=== PATIENT | female | born 1985 | race Caucasian/White ===

== ENCOUNTER 2018-05-07 14:21 | Observation (INO) ==
[2018-05-07] MEDS ORDERED: NS 100 ML IV 100 ML IV ONE (14:42)
--- NOTE | 2018-05-07 15:26 | CT ---
CT ABDOMEN AND PELVIS WITH ORAL AND IV CONTRAST CLINICAL HISTORY: 33-year-old female with right lower quadrant pain and fever for 3 weeks. COMPARISON: None. TECHNIQUE: Multiple contiguous axial images were obtained following the administration of 99 mL Omnip aque 350 intravenously and oral contrast. Images were reformatted in the coronal and sagittal planes . FINDINGS: The lung bases are clear without pulmonary nodules, masses, or pleural fluid collections. The inferi or imaged heart is normal in size and there is no pericardial effusion. The liver, gallbladder, pancreas, and spleen are within normal limits. The adrenal glands are normal bilaterally. The kidneys perfuse in a normal fashion and the ureters r un in an unobstructed course to a well distended urinary bladder. The uterus is anteverted and normal in size. Mildly complex right adnexal cyst measures 3.9 x 3.8 x 4.1 cm with small volume free fluid within the pouch of Anjel. Left adnexa is unremarkable. The bowel is without obstruction or inflammation and there is no free fluid or free air within the pe ritoneal cavity. Appendix not visualized, no pericecal inflammation. There are no pathologically enl arged lymph nodes in the abdomen or pelvis. The arteriovascular structures are within normal limits. Soft tissues are normal. The osseous structures are intact without fracture or malalignment. IMPRESSION: 1. No acute intra-abdominal or pelvic pathology. 2. Right adnexal cyst measuring up to 4.1 cm, most likely benign, with small volume free fluid within the pouch of Anjel which is likely physiologic. However, ruptured or leaking ovarian cysts can be a source of pain, correlate with pelvic exam. 3. Nonvisualized appendix without pericecal inflammation to suggest appendicitis. Reported By:
[2018-05-07] MEDS ORDERED: TYLENOL 325 MG TAB PO PRN (17:24)
[2018-05-07] MEDS ORDERED: TORADOL 30 MG VIAL IVP PRN (17:24)
[2018-05-07 18:08] LABS: BASOPHILS % (AUTO) 0.2 % (0.2-1.0); EOSINOPHILS % (AUTO) 0.9 % (0.9-2.9); HEMATOCRIT 31.9 % (36.0-47.0); HEMOGLOBIN 10.8 g/dL (12.0-16.0); LYMPHOCYTES # (AUTO) 1.1 X10^3/uL (1.3-2.9); LYMPHOCYTES % (AUTO) 28.4 % (21.0-51.0); MEAN CORPUSCULAR HEMOGLOBIN 26.3 pg (27.0-34.0); MEAN CORPUSCULAR HGB CONC 33.8 g/dL (33.0-35.0); MEAN CORPUSCULAR VOLUME 77.8 fL (80.0-100.0); MEAN PLATELET VOLUME 7.3 fL (7.4-11.0); MONOCYTES # (AUTO) 0.4 x10^3/uL (0.3-0.8); MONOCYTES % (AUTO) 11.1 % (0.0-13.0); NEUTROPHILS # (AUTO) 2.2 x10^3/uL (2.2-4.8); NEUTROPHILS % (AUTO) 59.4 % (42.0-75.0); PLATELET COUNT 226 X10^3/uL (150.0-450.0); RED CELL DISTRIBUTION WIDTH 14.8 % (11.6-16.5); WHITE BLOOD COUNT 3.7 X10^3/uL (3.6-10.0)
[2018-05-07 18:15] VITALS: BMI 24.5
[2018-05-07 18:22] LABS: ALANINE AMINOTRANSFERASE 33 Units/L (12-78); ALBUMIN 3.2 g/dL (3.4-5.0); ALKALINE PHOSPHATASE 116 Units/L (46-116); ASPARTATE AMINO TRANSFERASE 23 Units/L (15-37); BLOOD UREA NITROGEN 11 mg/dL (7-18); CALCIUM 9.3 mg/dL (8.5-10.1); CHLORIDE 101 mmol/L (98-107); COR CA(FOR HYPOALB) 9.9 mg/dL (8.5-10.1); CREATININE 0.66 mg/dL (0.55-1.02); SODIUM 137 mmol/L (136-145); TOTAL PROTEIN 7.5 g/dL (6.4-8.2); eGFR NON BLACK RACES > 60 (>60)
[2018-05-07] MEDS: NS 1000 ML 1,000 ML IV SCH (18:35)
[2018-05-07] MEDS: LEVAQUIN PREMIX IV 750 MG 750 MG/150 ML BAG IV SCH (18:35)
[2018-05-07 19:12] LABS: BILIRUBIN,URINE NEGATIVE (NEGATIVE); BLOOD/HEMOGLOBIN,URINE NEGATIVE (NEGATIVE); GLUCOSE, URINE NEGATIVE (NEGATIVE); KETONES,URINE NEGATIVE (NEGATIVE); LEUKOCYTE ESTERASE ,URINE 1+ (NEGATIVE); NITRITES,URINE NEGATIVE (NEGATIVE); PROTEIN,URINE 2+ (NEGATIVE); UROBILINOGEN,URINE 1+ (NORMAL)
--- NOTE | 2018-05-07 19:14 | DR.UPDATE ---
H&P Update History and Physical Update: History and Physical reviewed and patient examined. Changes noted: Yes with the following: WAS SEEN IN THE OFFICE TODAY. SHE WAS SENT TO THE HOSPITAL FOR AN ABDOMEN/PELVIS CT. CT REVEALED: No acute intra-abdominal or pelvic pathology. Right adnexal cyst measuring up to 4.1 cm, most likely benign, with small volume free fluid within the pouch of Anjel which is likely physiologic. However, ruptured or leaking ovarian cysts can be a source of pain, correlate with pelvic exam. Nonvisualized appendix without pericecal inflammation to suggest appendicitis. She was admitted to the hospital for further evaluation and treatment.
[2018-05-07 19:15] LABS: APPEARANCE,URINE SLIGHTLY HAZY (CLEAR); COLOR,URINE PALE YELLOW (YELLOW)
[2018-05-07 19:23] LABS: BACTERIA,URINE NEGATIVE /HPF (NEGATIVE); RBC,URINE NONE SEEN /HPF (NONE SEEN); SQUAMOUS EPITHELIAL CELL,UR FEW /HPF (NEGATIVE)
[2018-05-07] MEDS ORDERED: COLACE CAP 100 MG PO SCH (21:00)
[2018-05-07] MEDS ORDERED: MILK OF MAGNESIA PO SCH (21:00)
[2018-05-07] MEDS: FORTAZ or TAZICEF VIAL INJ 1 G in NS 100 ML IV + SPIKE MINIBAG* 100 ML IV SCH (21:08)
[2018-05-07] MEDS ORDERED: ZOFRAN INJ 4 MG VIAL IVP PRN (21:14)
[2018-05-08] MEDS: NS 1000 ML 1,000 ML IV SCH ×3 (03:02→12:12)
[2018-05-08] MEDS: FORTAZ or TAZICEF VIAL INJ 1 G in NS 100 ML IV + SPIKE MINIBAG* 100 ML IV SCH ×3 (05:43→21:37)
[2018-05-08 05:51] LABS: BASOPHILS % (AUTO) 0.5 % (0.2-1.0); EOSINOPHILS # (AUTO) 0.1 x10^3/uL (0.0-0.2); EOSINOPHILS % (AUTO) 1.6 % (0.9-2.9); HEMATOCRIT 27.6 % (36.0-47.0); HEMOGLOBIN 9.6 g/dL (12.0-16.0); LYMPHOCYTES # (AUTO) 1.2 X10^3/uL (1.3-2.9); LYMPHOCYTES % (AUTO) 36.7 % (21.0-51.0); MEAN CORPUSCULAR HEMOGLOBIN 26.9 pg (27.0-34.0); MEAN CORPUSCULAR HGB CONC 34.7 g/dL (33.0-35.0); MEAN CORPUSCULAR VOLUME 77.5 fL (80.0-100.0); MEAN PLATELET VOLUME 7.6 fL (7.4-11.0); MONOCYTES # (AUTO) 0.5 x10^3/uL (0.3-0.8); MONOCYTES % (AUTO) 16.9 % (0.0-13.0); NEUTROPHILS # (AUTO) 1.4 x10^3/uL (2.2-4.8); NEUTROPHILS % (AUTO) 44.3 % (42.0-75.0); PLATELET COUNT 194 X10^3/uL (150.0-450.0); RED BLOOD COUNT 3.56 X10^6/uL (3.5-5.4); RED CELL DISTRIBUTION WIDTH 14.9 % (11.6-16.5); WHITE BLOOD COUNT 3.1 X10^3/uL (3.6-10.0)
[2018-05-08 06:12] LABS: ALANINE AMINOTRANSFERASE 26 Units/L (12-78); ALBUMIN 2.5 g/dL (3.4-5.0); ALKALINE PHOSPHATASE 91 Units/L (46-116); ASPARTATE AMINO TRANSFERASE 20 Units/L (15-37); BLOOD UREA NITROGEN 10 mg/dL (7-18); CALCIUM 8.4 mg/dL (8.5-10.1); CARBON DIOXIDE 27.9 mmol/L (21-32); CHLORIDE 107 mmol/L (98-107); COR CA(FOR HYPOALB) 9.6 mg/dL (8.5-10.1); CREATININE 0.61 mg/dL (0.55-1.02); SODIUM 141 mmol/L (136-145); eGFR NON BLACK RACES > 60 (>60)
[2018-05-08] MEDS: COLACE CAP 100 MG PO SCH (10:14)
[2018-05-08] MEDS: LEVAQUIN PREMIX IV 750 MG 750 MG/150 ML BAG IV SCH (10:14)
[2018-05-08] MEDS: MIRALAX POWDER (1 DOSE 17 G) PO SCH (10:14)
[2018-05-08] MEDS: MILK OF MAGNESIA PO SCH ×4 (10:14→21:37)
[2018-05-08] MEDS: TORADOL 30 MG VIAL IVP SCH ×3 (10:15→18:09)
[2018-05-08] MEDS ORDERED: NS 1000 ML IV SCH (15:00)
[2018-05-08] MEDS ORDERED: NS 1000 ML 1,000 ML IV SCH (15:00)
[2018-05-08] MEDS ORDERED: MILK OF MAGNESIA PO PRN (21:56)
[2018-05-09] MEDS: TORADOL 30 MG VIAL IVP SCH (01:48)
[2018-05-09 04:30] LABS: BASOPHILS % (AUTO) 0.2 % (0.2-1.0); EOSINOPHILS # (AUTO) 0.1 x10^3/uL (0.0-0.2); EOSINOPHILS % (AUTO) 2.2 % (0.9-2.9); HEMATOCRIT 26.3 % (36.0-47.0); HEMOGLOBIN 9.2 g/dL (12.0-16.0); LYMPHOCYTES % (AUTO) 35.7 % (21.0-51.0); MEAN CORPUSCULAR HEMOGLOBIN 27.2 pg (27.0-34.0); MEAN CORPUSCULAR HGB CONC 34.9 g/dL (33.0-35.0); MEAN CORPUSCULAR VOLUME 77.9 fL (80.0-100.0); MEAN PLATELET VOLUME 7.4 fL (7.4-11.0); MONOCYTES # (AUTO) 0.4 x10^3/uL (0.3-0.8); MONOCYTES % (AUTO) 13.1 % (0.0-13.0); NEUTROPHILS # (AUTO) 1.4 x10^3/uL (2.2-4.8); NEUTROPHILS % (AUTO) 48.8 % (42.0-75.0); PLATELET COUNT 177 X10^3/uL (150.0-450.0); RED BLOOD COUNT 3.37 X10^6/uL (3.5-5.4); RED CELL DISTRIBUTION WIDTH 14.7 % (11.6-16.5); WHITE BLOOD COUNT 2.9 X10^3/uL (3.6-10.0)
[2018-05-09 04:36] LABS: ALANINE AMINOTRANSFERASE 24 Units/L (12-78); ALBUMIN 2.4 g/dL (3.4-5.0); ALKALINE PHOSPHATASE 80 Units/L (46-116); ASPARTATE AMINO TRANSFERASE 19 Units/L (15-37); BLOOD UREA NITROGEN 10 mg/dL (7-18); CALCIUM 8.1 mg/dL (8.5-10.1); CARBON DIOXIDE 26.9 mmol/L (21-32); CHLORIDE 108 mmol/L (98-107); COR CA(FOR HYPOALB) 9.4 mg/dL (8.5-10.1); CREATININE 0.67 mg/dL (0.55-1.02); SODIUM 143 mmol/L (136-145); TOTAL PROTEIN 5.7 g/dL (6.4-8.2); eGFR NON BLACK RACES > 60 (>60)
[2018-05-09] MEDS: FORTAZ or TAZICEF VIAL INJ 1 G in NS 100 ML IV + SPIKE MINIBAG* 100 ML IV SCH (05:55)
[2018-05-09 09:43] VITALS: BP 102/62
[2018-05-09] MEDS: MIRALAX POWDER (1 DOSE 17 G) PO SCH (09:43)
[2018-05-09] MEDS: COLACE CAP 100 MG PO SCH (09:43)
[2018-05-09] MEDS: LEVAQUIN PREMIX IV 750 MG 750 MG/150 ML BAG IV SCH (09:43)
--- NOTE | 2018-05-13 21:56 | PCM.PROG ---
Progress Note - Progress Note for Day of Date of Exam: 05/08/18 - Subjective Subjective: WAS ADMITTED FOR FEVER AND ABDOMINAL PAIN. ABDOMEN/ PELVIS CT REVEALED AN OVARIAN CYST. TODAY, SHE IS ALERT AND ORIENTED, LYING IN BED ON MORNING ROUNDS. SHE CONTINUES WITH COMPLAINTS OF ABDOMINAL PAIN. ON EXAMINATION, HEART IS REGULAR IN RATE AND RHYTHM. BILATERAL LUNGS ARE CLEAR TO AUSCULTATION. ABDOMEN IS ROUND, SOFT, AND NOTED WITH MILD, DIFFUSE TENDERNESS TO PALPATION. DECREASED BOWEL SOUNDS NOTED IN ALL QUADRANTS. SHE IS HEMODYNAMICALLY STABLE TODAY AND HAS BEEN AFEBRILE SINCE ADMISSION. SHE DENIES A BOWEL MOVEMENT IN THE PAST FOUR DAYS. TODAY, WE WILL START A BOWEL REGIMEN AND SCHEDULE IV TORADOL. OTHERWISE, WE WILL FOLLOW UP WITH AM LABS AND CONTINUE TO MONITOR PATIENT. - Past Medical Family Social History Past Med/Fam/Surg Hx: No changes since H&P Allergies: Allergies morphine Allergy (Verified 05/07/18 17:40) - Review of Systems ROS: No change since H&P - Vital Signs and I&O's Vital Signs: Temperature 98.5 F Pulse Rate [Left Brachial] 78 Respiratory Rate 18 Blood Pressure [Left Arm] 102/62 O2 Sat by Pulse Oximetry 99 - Physical Exam Oriented: Normal Eyes: Normal Ear: Normal Nose: Normal Throat: Normal Respiratory: Normal Cardiovascular: Normal : Normal Auscultation: Bowel Sounds: Decreased Palpation: Normal Tenderness: Diffuse, Mild. negative: Rebound, Guarding, Rigidity Skin: Normal Musculoskeletal: Normal Psychiatric: Normal Mood Description: Calm Affect: Normal Speech Pattern: Clear, Appropriate - Laboratory and Diagnostics Result Diagrams: 05/09/18 04:08 05/09/18 04:08 Labs: 05/07/18 17:57 Blood Blood Culture - Final 05/07/18 17:51 Blood Blood Culture - Final Laboratory WBC 2.9 X10^3/uL (3.6-10.0) L 05/09/18 04:08 RBC 3.37 X10^6/uL (3.5-5.4) L 05/09/18 04:08 Hgb 9.2 g/dL (12.0-16.0) L 05/09/18 04:08 Hct 26.3 % (36.0-47.0) L 05/09/18 04:08 MCV 77.9 fL (80.0-100.0) L 05/09/18 04:08 MCH 27.2 pg (27.0-34.0) 05/09/18 04:08 MCHC 34.9 g/dL (33.0-35.0) 05/09/18 04:08 RDW 14.7 % (11.6-16.5) 05/09/18 04:08 Plt Count 177 X10^3/uL (150.0-450.0) 05/09/18 04:08 MPV 7.4 fL (7.4-11.0) 05/09/18 04:08 Neut % (Auto) 48.8 % (42.0-75.0) 05/09/18 04:08 Lymph % (Auto) 35.7 % (21.0-51.0) 05/09/18 04:08 [place] % (Auto) 13.1 % (0.0-13.0) H 05/09/18 04:08 Eos % (Auto) 2.2 % (0.9-2.9) 05/09/18 04:08 Baso % (Auto) 0.2 % (0.2-1.0) 05/09/18 04:08 Neut # (Auto) 1.4 x10^3/uL (2.2-4.8) L 05/09/18 04:08 Lymph # (Auto) 1.0 X10^3/uL (1.3-2.9) L 05/09/18 04:08 [place] # (Auto) 0.4 x10^3/uL (0.3-0.8) 05/09/18 04:08 Eos # (Auto) 0.1 x10^3/uL (0.0-0.2) 05/09/18 04:08 Baso # (Auto) 0.0 X10^3/uL (0.0-0.1) 05/09/18 04:08 Absolute Nucleated RBC 0.0 /100WBC 05/09/18 04:08 Sodium 143 mmol/L (136-145) 05/09/18 04:08 Corrected Sodium TNP 05/09/18 04:08 Potassium 3.5 mmol/L (3.5-5.1) 05/09/18 04:08 Chloride 108 mmol/L (98-107) H 05/09/18 04:08 Carbon Dioxide 26.9 mmol/L (21-32) 05/09/18 04:08 BUN 10 mg/dL (7-18) 05/09/18 04:08 Creatinine 0.67 mg/dL (0.55-1.02) 05/09/18 04:08 Est GFR (MDRD) Af Amer > 60 (>60) 05/09/18 04:08 Est GFR (MDRD) Non-Af > 60 (>60) 05/09/18 04:08 Glucose 109 mg/dL (65-99) H 05/09/18 04:08 Calcium 8.1 mg/dL (8.5-10.1) L 05/09/18 04:08 Corrected Calcium 9.4 mg/dL (8.5-10.1) 05/09/18 04:08 Total Bilirubin 0.40 mg/dL (0.2-1.0) 05/09/18 04:08 AST 19 Units/L (15-37) 05/09/18 04:08 ALT 24 Units/L (12-78) 05/09/18 04:08 Alkaline Phosphatase 80 Units/L (46-116) 05/09/18 04:08 Total Protein 5.7 g/dL (6.4-8.2) L 05/09/18 04:08 Albumin 2.4 g/dL (3.4-5.0) L 05/09/18 04:08 Globulin 3.3 g/dL (2.5-4.5) 05/09/18 04:08 Albumin/Globulin Ratio 0.7 Ratio (1.1-2.1) L 05/09/18 04:08 Specimen Type Clean catch urine 05/07/18 19:03 Urine Color Pale yellow (YELLOW) 05/07/18 19:03 Urine Appearance Slightly hazy (CLEAR) 05/07/18 19:03 Urine pH 7.0 (5.0 - 8.0) 05/07/18 19:03 Ur Specific [place] 1.005 (1.000-1.030) 05/07/18 19:03 Urine Protein 2+ (NEGATIVE) 05/07/18 19:03 Urine Glucose (UA) Negative (NEGATIVE) 05/07/18 19:03 Urine Ketones Negative (NEGATIVE) 05/07/18 19:03 Urine Occult Blood Negative (NEGATIVE) 05/07/18 19:03 Urine Nitrite Negative (NEGATIVE) 05/07/18 19:03 Urine Bilirubin Negative (NEGATIVE) 05/07/18 19:03 Urine Urobilinogen 1+ (NORMAL) 05/07/18 19:03 Ur Leukocyte Esterase 1+ (NEGATIVE) 05/07/18 19:03 Urine RBC None seen /HPF (NONE SEEN) 05/07/18 19:03 Urine WBC 0-2 /HPF (NONE SEEN) 05/07/18 19:03 Ur Squamous Epith Cells Few /HPF (NEGATIVE) 05/07/18 19:03 Urine Bacteria Negative /HPF (NEGATIVE) 05/07/18 19:03 Ur Culture Indicated? No/not indicated 05/07/18 19:03 - Plan (1) Fever Status: Acute Qualifiers: Fever type: unspecified Qualified Code(s): R50.9 - Fever, unspecified (2) Abdominal pain Status: Acute Qualifiers: Abdominal location: generalized Qualified Code(s): R10.84 - Generalized abdominal pain Plan: CONTINUE TO MONITOR PAIN (3) Ovarian cyst Status: Acute Qualifiers: Laterality: right Qualified Code(s): N83.201 - Unspecified ovarian cyst, right side (4) Constipation Status: Acute Qualifiers: Constipation type: unspecified constipation type Qualified Code(s): K59.00 - Constipation, unspecified Plan: COLACE, MILK OF MAGNESIA, MIRALAX, CONTINUE TO MONITOR
--- NOTE | 2018-05-29 17:15 | DR.CARTERD ---
- Discharge Summary for: Discharge Summary for Date of:: 05/09/18 - Admission Date Date of Admission: 05/07/18 - Admission Diagnoses Admission Diagnosis: (1) Abdominal pain (2) Fever (3) Ovarian cyst (4) Constipation - Discharge Date Discharge Date: 05/09/18 - Discharge Diagnoses Discharge Diagnosis: (1) Abdominal pain (2) Fever (3) Ovarian cyst (4) Constipation - Hospital Course Hospital Course: Day one, Ms. Villalta presented to the hospital as a direct admission after being seen in the office with reports of fever. Patient reported symptoms started a couple of weeks ago as high as 104.5. Symptoms included abdominal pain, painful urination and nausea. Patient received a Rocephin injection and was started on oral Cipro twice daily to take for 14 days with continued symptoms. Patient was sent for an outpatient abdomen and pelvis CT which revealed right adnexal cyst measuring up to 4.1 cm, most likely benign, with small volume free fluid within the pouch of Anjel which is likely physiologic. However, ruptured or leaking ovarian cysts can be a source of pain , correlate with pelvic exam. Patient noted with right lower quadrant abdominal tenderness on palpation. Patient reported her last bowel movement was on 05/03/18. Patient started on IV fluids, IV antibiotics, and pain medications. Medical History: None. Medications: Tylenol 650mg po Q4hr PRN, Toradol 30mg IV Q6hr PRN, Levaquin 750mg IV daily, NS @125ml/hr, Colace 200mg po HS, Milk of Mag 30ml po HS, Zofran 4mg IV Q4hr PRN, Fortaz 1gm IV Q8hr, NS @ 125ml/hr [id number]. Abnormal Labs: Hgb 10.8, Hct 31.9, MCV 77.8, MCH 26.3, MPV 7.3, Potassium 3.4, Albumin 3.2, A/G Ratio 0.7. Urinalysis: Protein 2+, Urobilinogen 1+, Leuk Est 1+, WBC 0-2. Blood Cultures x2 obtained. Day two, Ms. Villalta continued treatment for fever and abdominal pain. She was alert and oriented. She continued with complaints of abdominal pain. On examination, heart was regular in rate and rhythm. Bilateral lungs were clear to auscultation. Abdomen was round, soft, and noted with mild, diffuse tenderness to palpation. Decreased bowel sounds noted throughout. Labs wnl. She had been afebrile since admission. She denied bowel movement in the past four days. We started a bowel regimen and Toradol IV atc. We continued to monitor. Day three, Patient reported she felt better. Patient rest in bed, pleasant affect. She remained afebrile. Labs wnl. Abdomen was noted with mild tenderness upon palpation. Patient reported pain was tolerable with oral pain medication. We planned for discharge. Instructions for medications and follow up were discussed with patient and family, both voiced understanding. Patient discharged home in stable condition with family. - Discharge Medications Discharge Medications: Home Medication List ondansetron 1 tab TRANSLINGUAL Q8H PRN 05/07/18 [History] ciprofloxacin HCl [Cipro] 500 mg PO BID #20 tab 05/09/18 [Rx] tramadol [Ultram] 50 mg PO Q4H #30 tab 05/09/18 [Rx] Prescriptions: ciprofloxacin HCl [Cipro] Marcello Dailey tramadol [Ultram] Marcello Dailey - Discharge Disposition Discharge Disposition: Patient is to follow up in our office in one week.
== END 2018-05-09 10:03 | disposition home or self-care (01) ==
LOC: RAD 14:21 → MED/SURG 14:21
PROVIDERS: ADMIT Internal Medicine; ATTEND Internal Medicine
DX: N85.8 Other specified noninflammatory disorders of uterus; R10.9 Unspecified abdominal pain; R50.9 Fever, unspecified
CPT/HCPCS: 36415; 74177; 80053; 81001; 85025; 87040; A4216; A4222; G0378; J0713; J1885; J7030; J7050

== ENCOUNTER 2022-08-18 15:51 | Inpatient (IN) ==
--- NOTE | 2022-08-18 16:41 | DR.GENAD ---
HPI <Wayne Martínez - Last Filed: 08/18/22 19:56> Time Seen Time Seen by Provider: 08/18/22 16:40 PCP Primary Care Physician: amelie Complaint/Symptoms Chief Complaint Doctors Comments: 37 y/o female sent by PCP for evaluation. Started feeling ill several days ago, sinus congestion. Now with a cough, productive of some yellow sputum. Today with right sided chest pain, worse with coughing, moving. Does not radiate, nothing makes it better. + fever, nausea. No vomiting, diarrhea, or urinary complaints. Daughter had URI last week. No swelling or redness of her legs. Chief Complaint:: Pt stated that she's had a head cold since monday and has a pain in the middle of her back and the front of her ribs when she coughs. Pt states it's a sharp pain every time she breathes and this is the worst is has b een. Nothing makes the pain better and nothing makes the pain more intense. Self Treatment fo Chief Complaint: Pt took two tylenol around 1300 today; Toradol shot in Amelie's office around 15 minutes ago Nurses notes reviewed Nurses Notes Review: Yes Source History Provided: Patient and Significant Other Mode of Arrival Mode of Arrival: Ambulatory Timing Onset of Chief Complaint: 08/15/22 PMH <Wayne Martínez - Last Filed: 08/18/22 19:56> PMH Past Medical History: Yes Past Medical History: Asthma Past Medical History Comment: HIV - diagnosed in 2006 Past Surgical History: Yes Surgical History: Tonsillectomy Past Surgical History Comment: Eye surgery, tubes in ears, Family History History of Family Medical Conditions: Yes Family Medical History: Diabetes Mellitus, Heart Failure and Hypertension Social History Alcohol Use: None Do you use any recreational Drugs:: No Lives With: Spouse Lives Where: Home Infectious screening Have you traveled outside the country in the last 6 months?: No Isolation: Standard ROS <Wayne Martínez - Last Filed: 08/18/22 19:56> Review of Systems Constitutional: Chills, Fever and Weakness Eyes: No Symptoms Reported ENTM: No Symptoms Reported Respiratoy: Productive Cough and Short of Breath Cardiovascular: Chest Pain Gastrointestinal/Abdominal: No Symptoms Reported Genitourinary: No Symptoms Reported Neurological: No Symptoms Reported Musculoskeletal: No Symptoms Reported Integumentary: No Symptoms Reported Hematologic/Lymphatic: No Symptoms Reported Psychiatric: No Symptoms Reported All Other Systems: Reviewed and Negative PE <Wayne Martínez - Last Filed: 08/18/22 19:56> Vital Signs Vitals: Temperature 97.5 F Pulse Rate [Apical] 117 Pulse Rate 101 Respiratory Rate 22 Blood Pressure [Left Arm] 97/53 Blood Pressure 91/57 O2 Sat by Pulse Oximetry 98 General General Appearance: Alert and In No Apparent Distress Eyes Eye exam: PERRL and EOMI ENT ENT Exam: Normal Exam, Normal Oropharynx and Mucous Membranes Moist Neck Neck Exam: Normal Inspection and Full ROM Chest Chest Inspection: Tenderness (right anterior tenderness.) Respiratory Respiratory Exam: Normal Lung Sounds Bilat; negative Accessory Muscle Use or Respiratory Distress Cardiovascular Cardiovascular Exam: Regular Rate, Normal Rhythm, Tachycardia and Normal Heart Sounds Extremities Extremities Exam: Normal Inspection and Full ROM; negative Tenderness or Edema Neurologic Neurological Exam: Alert, Oriented X3 and CN II-XII Intact; negative Motor Sensory Deficit Skin Skin Exam: Warm and Dry <Becki Mathews - Last Filed: 08/18/22 22:28> Vital Signs Vitals: Temperature 97.5 F Pulse Rate [Apical] 117 Pulse Rate 101 Respiratory Rate 22 Blood Pressure [Left Arm] 97/53 Blood Pressure 91/57 O2 Sat by Pulse Oximetry 98 MDM <Wayne Martínez - Last Filed: 08/18/22 19:56> Differential Diagnosis Differential Diagnosis: pneumonia, pleurisy, PE, PTX COURSE <Wayne Martínez - Last Filed: 08/18/22 19:56> Treatment Treatment: 37 y/o female ill x past few days, having rught sided chest pain. Sent from PCP's office. W/u iniitated. 1800 - CXR with RLL consolidation, probable infiltrate. WBC 12k, CMP with slight low Na 133, K+ 3.2. d-dimer elevated at 0.96. Probable pneumonia, given IV rocephin/toradol. Will obtain CTA of the chest to r/o underlying PE with infarct. <Becki Mathews - Last Filed: 08/18/22 22:28> Treatment Treatment: 37 y/o female ill x past few days, having rught sided chest pain. Sent from PCP's office. W/u iniitated. 1800 - CXR with RLL consolidation, probable infiltrate. WBC 12k, CMP with slight low Na 133, K+ 3.2. d-dimer elevated at 0.96. Probable pneumonia, given IV rocephin/toradol. Will obtain CTA of the chest to r/o underlying PE with infarct. [address] Martínez; pt resting quietly Reevaluation 1st: Worsened (several episodes of desats to 84% when coughing/moving around; placed on oxygen) Consultation Call Returned: 22:00 (Dr Daniel accepts admission.) ROR <Wayne Martínez - Last Filed: 08/18/22 19:56> Labs Reviewed Result Diagrams: 08/18/22 16:55 08/18/22 16:55 Laboratory: WBC 12.8 X10^3/uL (3.6-10.0) H 08/18/22 16:55 RBC 4.03 X10^6/uL (3.5-5.4) 08/18/22 16:55 Hgb 10.6 g/dL (12.0-16.0) L 08/18/22 16:55 Hct 31.2 % (36.0-47.0) L 08/18/22 16:55 MCV 77.5 fL (80.0-100.0) L 08/18/22 16:55 MCH 26.3 pg (27.0-34.0) L 08/18/22 16:55 MCHC 33.9 g/dL (33.0-35.0) 08/18/22 16:55 RDW 14.8 % (11.6-16.5) 08/18/22 16:55 Plt Count 219 X10^3/uL (150.0-450.0) 08/18/22 16:55 MPV 7.7 fL (7.4-11.0) 08/18/22 16:55 Neut % (Auto) 90.0 % (42.0-75.0) H 08/18/22 16:55 Lymph % (Auto) 3.4 % (21.0-51.0) L 08/18/22 16:55 [place] % (Auto) 6.1 % (0.0-13.0) 08/18/22 16:55 Eos % (Auto) 0.1 % (0.9-2.9) L 08/18/22 16:55 Baso % (Auto) 0.4 % (0.2-1.0) 08/18/22 16:55 Neut # (Auto) 11.5 x10^3/uL (2.2-4.8) H 08/18/22 16:55 Lymph # (Auto) 0.4 X10^3/uL (1.3-2.9) L 08/18/22 16:55 [place] # (Auto) 0.8 x10^3/uL (0.3-0.8) 08/18/22 16:55 Eos # (Auto) 0.0 x10^3/uL (0.0-0.2) 08/18/22 16:55 Baso # (Auto) 0.1 X10^3/uL (0.0-0.1) 08/18/22 16:55 Absolute Nucleated RBC 0.0 /100WBC 08/18/22 16:55 D-Dimer 0.96 ug/ml (0.0-0.57) H 08/18/22 16:55 Sodium 133 mmol/L (136-145) L 08/18/22 16:55 Corrected Sodium 133 mmol/L (136-145) L 08/18/22 16:55 Potassium 3.2 mmol/L (3.5-5.1) L 08/18/22 16:55 Chloride 98 mmol/L (98-107) 08/18/22 16:55 Carbon Dioxide 27.7 mmol/L (21-32) 08/18/22 16:55 BUN 17 mg/dL (7-18) 08/18/22 16:55 Creatinine 0.83 mg/dL (0.55-1.02) 08/18/22 16:55 Est GFR (MDRD) Af Amer > 60 (>60) 08/18/22 16:55 Est GFR (MDRD) Non-Af > 60 (>60) 08/18/22 16:55 Glucose 114 mg/dL (65-99) H 08/18/22 16:55 Lactic Acid 1.0 mmol/L (0.4-2.0) 08/18/22 16:55 Calcium 8.0 mg/dL (8.5-10.1) L 08/18/22 16:55 Corrected Calcium 9.2 mg/dL (8.5-10.1) 08/18/22 16:55 Total Bilirubin 1.40 mg/dL (0.2-1.0) H 08/18/22 16:55 AST 37 Units/L (15-37) 08/18/22 16:55 ALT 60 Units/L (12-78) 08/18/22 16:55 Alkaline Phosphatase 251 Units/L (46-116) H 08/18/22 16:55 Total Protein 7.0 g/dL (6.4-8.2) 08/18/22 16:55 Albumin 2.5 g/dL (3.4-5.0) L 08/18/22 16:55 Globulin 4.5 g/dL (2.5-4.5) 08/18/22 16:55 Albumin/Globulin Ratio 0.6 Ratio (1.1-2.1) L 08/18/22 16:55 Specimen Type Clean catch urine 08/18/22 17: Urine Color Yellow (YELLOW) 08/18/22 17:22 Urine Appearance Slightly hazy (CLEAR) 08/18/22 17: Urine pH 6.0 (5.0 - 8.0) 08/18/22 17:22 Ur Specific [place] 1.010 (1.000-1.030) 08/18/22 17: Urine Protein 1+ (NEGATIVE) 08/18/22 17: Urine Glucose (UA) Negative (NEGATIVE) 08/18/22 17: Urine Ketones Negative (NEGATIVE) 08/18/22 17:22 Urine Blood Negative (NEGATIVE) 08/18/22 17: Urine Nitrite Negative (NEGATIVE) 08/18/22 17: Urine Bilirubin Negative (NEGATIVE) 08/18/22 17:22 Urine Urobilinogen 1+ (NORMAL) 08/18/22 17:22 Ur Leukocyte Esterase Negative (NEGATIVE) 08/18/22 17: Urine RBC 0-2 /HPF (0-3) 08/18/22 17: Urine WBC None seen /HPF (0-5) 08/18/22 17:22 Ur Squamous Epith Cells Few /HPF (NEGATIVE) 08/18/22 17:22 Ur Renal Epithelial Cell Rare /HPF (NEGATIVE) 08/18/22 17:22 Amorphous Sediment 1+ /HPF (NEGATIVE) 08/18/22 17:22 Urine Bacteria Trace /HPF (NEGATIVE) 08/18/22 17:22 Hyaline Casts Rare /LPF (NEGATIVE) 08/18/22 17:22 Ur Culture Indicated? No/not indicated 08/18/22 17:22 SARS-CoV-2 (PCR) Negative (NEGATIVE) 08/18/22 17:22 Influenza Type A (PCR) Negative (NEGATIVE) 08/18/22 17:22 Influenza Type B (PCR) Negative (NEGATIVE) 08/18/22 17:22 RSV (PCR) Negative (NEGATIVE) 08/18/22 17:22 <Becki Mathews - Last Filed: 08/18/22 22:28> Labs Reviewed Laboratory: WBC 12.8 X10^3/uL (3.6-10.0) H 08/18/22 16:55 RBC 4.03 X10^6/uL (3.5-5.4) 08/18/22 16:55 Hgb 10.6 g/dL (12.0-16.0) L 08/18/22 16:55 Hct 31.2 % (36.0-47.0) L 08/18/22 16:55 MCV 77.5 fL (80.0-100.0) L 08/18/22 16:55 MCH 26.3 pg (27.0-34.0) L 08/18/22 16:55 MCHC 33.9 g/dL (33.0-35.0) 08/18/22 16:55 RDW 14.8 % (11.6-16.5) 08/18/22 16:55 Plt Count 219 X10^3/uL (150.0-450.0) 08/18/22 16:55 MPV 7.7 fL (7.4-11.0) 08/18/22 16:55 Neut % (Auto) 90.0 % (42.0-75.0) H 08/18/22 16:55 Lymph % (Auto) 3.4 % (21.0-51.0) L 08/18/22 16:55 [place] % (Auto) 6.1 % (0.0-13.0) 08/18/22 16:55 Eos % (Auto) 0.1 % (0.9-2.9) L 08/18/22 16:55 Baso % (Auto) 0.4 % (0.2-1.0) 08/18/22 16:55 Neut # (Auto) 11.5 x10^3/uL (2.2-4.8) H 08/18/22 16:55 Lymph # (Auto) 0.4 X10^3/uL (1.3-2.9) L 08/18/22 16:55 [place] # (Auto) 0.8 x10^3/uL (0.3-0.8) 08/18/22 16:55 Eos # (Auto) 0.0 x10^3/uL (0.0-0.2) 08/18/22 16:55 Baso # (Auto) 0.1 X10^3/uL (0.0-0.1) 08/18/22 16:55 Absolute Nucleated RBC 0.0 /100WBC 08/18/22 16:55 D-Dimer 0.96 ug/ml (0.0-0.57) H 08/18/22 16:55 Sodium 133 mmol/L (136-145) L 08/18/22 16:55 Corrected Sodium 133 mmol/L (136-145) L 08/18/22 16:55 Potassium 3.2 mmol/L (3.5-5.1) L 08/18/22 16:55 Chloride 98 mmol/L (98-107) 08/18/22 16:55 Carbon Dioxide 27.7 mmol/L (21-32) 08/18/22 16:55 BUN 17 mg/dL (7-18) 08/18/22 16:55 Creatinine 0.83 mg/dL (0.55-1.02) 08/18/22 16:55 Est GFR (MDRD) Af Amer > 60 (>60) 08/18/22 16:55 Est GFR (MDRD) Non-Af > 60 (>60) 08/18/22 16:55 Glucose 114 mg/dL (65-99) H 08/18/22 16:55 Lactic Acid 1.0 mmol/L (0.4-2.0) 08/18/22 16:55 Calcium 8.0 mg/dL (8.5-10.1) L 08/18/22 16:55 Corrected Calcium 9.2 mg/dL (8.5-10.1) 08/18/22 16:55 Total Bilirubin 1.40 mg/dL (0.2-1.0) H 08/18/22 16:55 AST 37 Units/L (15-37) 08/18/22 16:55 ALT 60 Units/L (12-78) 08/18/22 16:55 Alkaline Phosphatase 251 Units/L (46-116) H 08/18/22 16:55 Total Protein 7.0 g/dL (6.4-8.2) 08/18/22 16:55 Albumin 2.5 g/dL (3.4-5.0) L 08/18/22 16:55 Globulin 4.5 g/dL (2.5-4.5) 08/18/22 16:55 Albumin/Globulin Ratio 0.6 Ratio (1.1-2.1) L 08/18/22 16:55 Specimen Type Clean catch urine 08/18/22 17:22 Urine Color Yellow (YELLOW) 08/18/22 17:22 Urine Appearance Slightly hazy (CLEAR) 08/18/22 17: Urine pH 6.0 (5.0 - 8.0) 08/18/22 17:22 Ur Specific [place] 1.010 (1.000-1.030) 08/18/22 17: Urine Protein 1+ (NEGATIVE) 08/18/22 17: Urine Glucose (UA) Negative (NEGATIVE) 08/18/22 17: Urine Ketones Negative (NEGATIVE) 08/18/22 17:22 Urine Blood Negative (NEGATIVE) 08/18/22 17: Urine Nitrite Negative (NEGATIVE) 08/18/22 17: Urine Bilirubin Negative (NEGATIVE) 08/18/22 17:22 Urine Urobilinogen 1+ (NORMAL) 08/18/22 17:22 Ur Leukocyte Esterase Negative (NEGATIVE) 08/18/22 17:22 Urine RBC 0-2 /HPF (0-3) 08/18/22 17: Urine WBC None seen /HPF (0-5) 08/18/22 17:22 Ur Squamous Epith Cells Few /HPF (NEGATIVE) 08/18/22 17:22 Ur Renal Epithelial Cell Rare /HPF (NEGATIVE) 08/18/22 17:22 Amorphous Sediment 1+ /HPF (NEGATIVE) 08/18/22 17:22 Urine Bacteria Trace /HPF (NEGATIVE) 08/18/22 17:22 Hyaline Casts Rare /LPF (NEGATIVE) 08/18/22 17:22 Ur Culture Indicated? No/not indicated 08/18/22 17:22 SARS-CoV-2 (PCR) Negative (NEGATIVE) 08/18/22 17:22 Influenza Type A (PCR) Negative (NEGATIVE) 08/18/22 17:22 Influenza Type B (PCR) Negative (NEGATIVE) 08/18/22 17:22 RSV (PCR) Negative (NEGATIVE) 08/18/22 17:22 XRAY XRAY Interpreted by: Radiologist X-ray Results: pcxr: 1. Cardiomegaly, pulmonary edema and moderate right effusion. ct chest pe protocol: no PE; rll pneu and small, partially loculated rt pleural effusion suspicious for empyema, dense liver suggesting hepatic steatosis Opioid <Wayne Martínez - Last Filed: 08/18/22 19:56> Opioid Risk Tool Age (Mikal box if 16-45): Yes History of Preadolescent Sexual Abuse: No Total: 1 Total Score Risk Category: Low Risk Copyright: [employer] SEN predicting aberrant behaviors <Becki Mathews - Last Filed: 08/18/22 22:28> Opioid Risk Tool Total: 1 Total Score Risk Category: Low Risk Discharge Plan Diagnosis Discharge Problem: RLL pneumonia, Empyema lung, Hypoxia, Acute hypokalemia Discharge Plan Patient Disposition: 09 ADMITTED INPATIENT Condition: Stable
[2022-08-18] MEDS ORDERED: NS 1,000 ML IV 1,000 ML IV ONE (16:48)
[2022-08-18] MEDS ORDERED: NS 1,000 ML IV 1,000 ML ONE ×2 (16:53→22:04)
[2022-08-18 17:21] LABS: BASOPHILS # (AUTO) 0.1 X10^3/uL (0.0-0.1); BASOPHILS % (AUTO) 0.4 % (0.2-1.0); EOSINOPHILS % (AUTO) 0.1 % (0.9-2.9); HEMATOCRIT 31.2 % (36.0-47.0); HEMOGLOBIN 10.6 g/dL (12.0-16.0); LYMPHOCYTES # (AUTO) 0.4 X10^3/uL (1.3-2.9); LYMPHOCYTES % (AUTO) 3.4 % (21.0-51.0); MEAN CORPUSCULAR HEMOGLOBIN 26.3 pg (27.0-34.0); MEAN CORPUSCULAR HGB CONC 33.9 g/dL (33.0-35.0); MEAN CORPUSCULAR VOLUME 77.5 fL (80.0-100.0); MEAN PLATELET VOLUME 7.7 fL (7.4-11.0); MONOCYTES # (AUTO) 0.8 x10^3/uL (0.3-0.8); MONOCYTES % (AUTO) 6.1 % (0.0-13.0); NEUTROPHILS # (AUTO) 11.5 x10^3/uL (2.2-4.8); RED BLOOD COUNT 4.03 X10^6/uL (3.5-5.4); RED CELL DISTRIBUTION WIDTH 14.8 % (11.6-16.5); WHITE BLOOD COUNT 12.8 X10^3/uL (3.6-10.0)
[2022-08-18 17:32] LABS: ALANINE AMINOTRANSFERASE 60 Units/L (12-78); ALBUMIN 2.5 g/dL (3.4-5.0); ALKALINE PHOSPHATASE 251 Units/L (46-116); ASPARTATE AMINO TRANSFERASE 37 Units/L (15-37); BLOOD UREA NITROGEN 17 mg/dL (7-18); CARBON DIOXIDE 27.7 mmol/L (21-32); CHLORIDE 98 mmol/L (98-107); COR CA(FOR HYPOALB) 9.2 mg/dL (8.5-10.1); COR NA(FOR HYPERGLY) 133 mmol/L (136-145); CREATININE 0.83 mg/dL (0.55-1.02); SODIUM 133 mmol/L (136-145); eGFR NON BLACK RACES > 60 (>60)
[2022-08-18 17:47] LABS: BILIRUBIN,URINE NEGATIVE (NEGATIVE); BLOOD/HEMOGLOBIN,URINE NEGATIVE (NEGATIVE); GLUCOSE, URINE NEGATIVE (NEGATIVE); KETONES,URINE NEGATIVE (NEGATIVE); LEUKOCYTE ESTERASE ,URINE NEGATIVE (NEGATIVE); NITRITES,URINE NEGATIVE (NEGATIVE); PROTEIN,URINE 1+ (NEGATIVE); UROBILINOGEN,URINE 1+ (NORMAL)
[2022-08-18] MEDS ORDERED: TORADOL 30 MG VIAL IVP ONE (17:51)
[2022-08-18] MEDS ORDERED: ROCEPHIN VIAL 1 GRAM ONE (17:56)
[2022-08-18] MEDS ORDERED: NS 100 ML IV 100 ML ONE (17:56)
[2022-08-18] MEDS ORDERED: TORADOL 30 MG VIAL ONE (17:56)
[2022-08-18 18:03] LABS: APPEARANCE,URINE SLIGHTLY HAZY (CLEAR); COLOR,URINE YELLOW (YELLOW)
[2022-08-18 18:04] LABS: BACTERIA,URINE TRACE /HPF (NEGATIVE); HYALINE CASTS, URINE RARE /LPF (NEGATIVE); RBC,URINE 0-2 /HPF (0-3); SQUAMOUS EPITHELIAL CELL,UR FEW /HPF (NEGATIVE)
[2022-08-18 18:05] LABS: RENAL EPITHELIAL CELLS,URINE RARE /HPF (NEGATIVE)
[2022-08-18] MEDS: ROCEPHIN VIAL 1 GRAM 1 G in NS 100 ML IV 100 ML IV SCH (18:12)
--- NOTE | 2022-08-18 20:08 | RAD ---
CHEST, 1 VIEWHISTORY: Pt stated that she's had a head cold since monday and has a pain in the middle of her back and the front of her ribs when she coughs.Study: PA and lateral views of the chest.Comparison:August 13, 2021Findings:Cardiomegaly and what appears to be pulmonary edema.Moderate right effusion with adjacent atelectasis. Osseous structures demonstrate no acute abnormality.IMPRESSION:1. Cardiomegaly, pulmonary edema and moderate right effusion.Electronically signed by: BRITTNEY HERNANDEZ (Aug 18, 2022 20:06:15)
[2022-08-18] MEDS ORDERED: K-DUR TAB 20 MEQ PO ONE ×2 (20:21→20:22)
[2022-08-18] MEDS ORDERED: NORCO 5/325 MG TAB PO ONE (20:48)
[2022-08-18] MEDS ORDERED: ZOFRAN INJ 4 MG VIAL IVP ONE (20:48)
[2022-08-18] MEDS ORDERED: NORCO 5/325 MG TAB ONE (20:52)
[2022-08-18] MEDS ORDERED: ZOFRAN INJ 4 MG VIAL ONE (20:52)
[2022-08-18] MEDS ORDERED: FLAGYL IV PREMIX 500 MG BAG 500 MG/100 ML BAG IV ONE ×2 (21:52→21:56)
[2022-08-18] MEDS ORDERED: NORCO 5/325 MG TAB PO PRN (22:00)
[2022-08-18] MEDS ORDERED: ZOFRAN INJ 4 MG VIAL IVP PRN (22:00)
[2022-08-18] MEDS: NS 1,000 ML IV 1,000 ML IV SCH (22:10)
[2022-08-18] MEDS ORDERED: SALINE 3% 15 ML NEB TX ONE (23:10)
[2022-08-19 05:21] LABS: BASOPHILS % (AUTO) 0.1 % (0.2-1.0); HEMATOCRIT 28.4 % (36.0-47.0); HEMOGLOBIN 9.7 g/dL (12.0-16.0); LYMPHOCYTES # (AUTO) 0.4 X10^3/uL (1.3-2.9); LYMPHOCYTES % (AUTO) 3.2 % (21.0-51.0); MEAN CORPUSCULAR HEMOGLOBIN 26.4 pg (27.0-34.0); MEAN CORPUSCULAR HGB CONC 34.2 g/dL (33.0-35.0); MEAN CORPUSCULAR VOLUME 77.2 fL (80.0-100.0); MEAN PLATELET VOLUME 7.6 fL (7.4-11.0); MONOCYTES # (AUTO) 0.4 x10^3/uL (0.3-0.8); MONOCYTES % (AUTO) 3.5 % (0.0-13.0); NEUTROPHILS # (AUTO) 11.1 x10^3/uL (2.2-4.8); NEUTROPHILS % (AUTO) 93.2 % (42.0-75.0); RED BLOOD COUNT 3.67 X10^6/uL (3.5-5.4); WHITE BLOOD COUNT 11.9 X10^3/uL (3.6-10.0)
[2022-08-19 05:34] LABS: ALANINE AMINOTRANSFERASE 46 Units/L (12-78); ALKALINE PHOSPHATASE 198 Units/L (46-116); ASPARTATE AMINO TRANSFERASE 20 Units/L (15-37); BLOOD UREA NITROGEN 19 mg/dL (7-18); CALCIUM 7.6 mg/dL (8.5-10.1); CARBON DIOXIDE 27.5 mmol/L (21-32); CHLORIDE 102 mmol/L (98-107); COR CA(FOR HYPOALB) 9.2 mg/dL (8.5-10.1); CREATININE 0.74 mg/dL (0.55-1.02); SODIUM 136 mmol/L (136-145); TOTAL PROTEIN 6.2 g/dL (6.4-8.2); eGFR NON BLACK RACES > 60 (>60)
[2022-08-19 05:44] LABS: BAND NEUTROPHILS % 7 % (0-10); PLATELET MORPHOLOGY COMMENT NORMAL (NORMAL)
[2022-08-19] MEDS ORDERED: MICRO K EXTEN CAP 10 MEQ PO PRN (05:52)
[2022-08-19] MEDS ORDERED: K-RIDER 10 MEQ/NS 100 ML 10 MEQ/100 ML BAG IV PRN (05:52)
[2022-08-19] MEDS ORDERED: POTASSIUM CHL 40 MEQ/NS 0.45% 500 ML IV PRN (05:52)
[2022-08-19] MEDS ORDERED: POTASSIUM CHLORIDE LIQ 20 MEQ UDC PO PRN (05:52)
[2022-08-19] MEDS ORDERED: KLOR-CON PO PRN (05:52)
[2022-08-19] MEDS ORDERED: POTASSIUM CHL 60 MEQ/NS 0.45% 500 ML IV PRN (05:52)
[2022-08-19] MEDS: K-DUR TAB 20 MEQ PO PRN (06:30)
[2022-08-19] MEDS: ROCEPHIN VIAL 1 GRAM 1 G in NS 100 ML IV 100 ML IV SCH (08:00)
[2022-08-19] MEDS ORDERED: ZOSYN VIAL 3.375 GRAMS 3.375 G in NS 100 ML IV 100 ML IV ONE (08:00)
[2022-08-19] MEDS: PULMICORT NEB TX 0.5 MG NEB SCH ×2 (08:47→20:25)
[2022-08-19] MEDS: DUONEB 0.5 MG/3 MG (3 mL) NEB SCH ×4 (08:47→20:25)
[2022-08-19] MEDS: ZOSYN VIAL 3.375 GRAMS 3.375 G in NS 100 ML IV 100 ML IV SCH ×3 (08:48→21:07)
[2022-08-19] MEDS ORDERED: SOLU-Medrol 40 MG VIAL IVP SCH (09:00)
[2022-08-19 09:18] LABS: ABG HCO3 25.5 mmol/L (22-26)
[2022-08-19 09:20] LABS: ABG ALLEN TEST POS
[2022-08-19] MEDS: TYLENOL 325 MG TAB PO PRN (09:23)
[2022-08-19] MEDS: LOVENOX INJ 40 MG SYR SC SCH (10:26)
[2022-08-19] MEDS: LEVAQUIN PREMIX IV 500 MG 500 MG/100 ML BAG IV SCH (10:26)
[2022-08-19] MEDS: TORADOL 30 MG VIAL IVP SCH ×3 (10:27→21:07)
[2022-08-19] MEDS: NS 1,000 ML IV 1,000 ML IV SCH (11:18)
[2022-08-19] MEDS: MAGNESIUM SULFATE 1 GRAM/100 mL PREMIX 1 G/100 ML BAG IV PRN ×2 (11:53→13:23)
[2022-08-19 13:07] VITALS: BMI 27.8
--- NOTE | 2022-08-19 15:12 | DR.H&P ---
H&P - History & Physical for Day of: H&P Date: 08/18/22 - Chief Complaint Chief Complaint: FEVER, COUGH, SHORTNESS OF BREATH, RIGHT SIDE RIB PAIN - History of Present Illness History of Present Illness: IS A 37 YEAR OLD PATIENT OF OURS. SHE PRESENTED TO THE ER WITH COMPLAINTS OF FEVER, PRODUCTIVE COUGH, CONGESTION, SHORTNESS OF BREATH, AND RIGHT SIDED RIB/CHEST PAIN. SYMPTOMS STARTED 4-5 DAYS AGO. SHE REPORTS THAT COUGH AND PAIN HAVE PROGRESSIVELY WORSENED. SHE DENIES VOMITING, DIARRHEA, OR URINARY COMPLAINS. SHE DESCRIBES PAIN SHARP, INTERMITTENT, ANDRATES IT A 8/10 ON ARRIVAL. PAIN DOES NOT RADIATE AND NOTHING MAKES IT BETTER. SHE REPORTS THAT PAIN IS WORSE UPON INSPIRATION. NO REDNESS OR SWELLING NOTED TO EXTREMITIES. SHE REPORTS THAT HER DAUGHTER HAD AN UPPER RESPIRATORY INFECTION LAST WEEK. SHE REPORTS A HISTORY OF HIV WHICH WAS DIAGNOSED IN 2006. UPON ARRIVAL, HER VITALS WERE: 97.5-114-17-95%-94/57. LABS WERE OBTAINED.WBC 12.8, RBC 4.03, HGB 10.6, HCT 31.2, PLT COUNT 219, D-DIMER 0.96, SODIUM 133, POTASSIUM 3.2, CHLORIDE 98, BUN 17, CREATININE 0.83, GLUCOSE 114, LACTIC ACID 1.0, CALCIUM 8.0, TOTAL BILI 1.40, AST 37, ALT 60, ALK PHOS 251, TOTAL PROTEIN 7.0, ALBUMIN 2.5. URINALYSIS WAS OBTAINED AND WAS UN REMARKABLE. COVID, INFLUENZA, AND RSV NEGATIVE. A RESPIRATRY VIRAL PANEL WAS SET UP. BLOOD AND SPUTUM CULTURES WERE ALSO SET UP. A CHEST XRAY WAS OBTAINED AND REVEALED: 1. Cardiomegaly pulmonary edema and moderate right effusion. SHE WAS SENT FOR A CHEST CTA WHICH REVEALED: NO EVIDENCE OF PULMONARY EMBOLISM. FINDINGS COMPATIBLE WITH RIGHT LOWER LOBE PNEUMONIA AND A SMALL, PARTIALLY LOCULATED RIGHT PLEURAL EFFUSION SUSPICIOUS FOR EMPYEMA. HETEROGENEOUS DENSITY OF THE LIVER, SUGGESTING HEPATIC STEATOSIS. WHILE IN THE ER, HER SATURATIONS DROPPED TO THE 80s WHILE COUGHING AND EATING. SHE WAS PLACED ON OXYGEN VIA NASAL CANNULA AT 2 LPM. IN THE ER, SHE WAS GIVEN A NORMAL SALINE BOLUS, ROCEPHIN 1G IM X 1, TORADOL 30MG IM X 1 DOSE, K-DUR 40MEQ PO X 1, NORCO 5/325MG PO X 1, ZOFRAN 4MG PO X 1, ZOSYN 3.375G IV X 1, FLAGYL 500MG IV X 1. SHE WAS ADMITTED TO THE HOSPITAL FOR FURTHER EVALUATION AND TREATMENT OF RIGHT LOWER LOBE PNEUMONIA, EMPYEMA, RIGHT PLEURAL EFFUSION. SHE WAS STARTED ON NORMAL SALINE AT 80 ML/HR, LEVAQUIN 500MG IV DAILY, ZOSYN 3.375G IV TID, DUONEBS QID, PULMICORT BID, LOVENOX 40MG SC DAILY, TORADOL 30MG IV Q6H, THE POTASSIUM AND MAGNESIUM PROTOCOLS, ZOFRAN 4MG IV Q8H PRN, NORCO 5/325MG PO Q8H PRN. WAS CONSULTED DUE TO EMPYEMA. HE WILL SEE PATIENT TODAY. OTHERWISE, WE PLAN TO FOLLOW-UP WITH AM LABS AND CONTINUE TO MONITOR. TIME SPENT ON CLINICAL ASSESSMENT, REVIEWING LABS AND IMAGING, DECISION MAKING, AND DOCUMENTATION GREATER THAN 75 MINUTES. - Past Medical History Past Medical History: Asthma Additional Medical History: HIV - Past Surgical History Surgical History: Appendectomy, Tonsillectomy - Family History Family Medical History: Diabetes Mellitus, Heart Failure, Hypertension - Social History Type of Tobacco Use: None Alcohol Use: None Drug Use: None - Medications Home Medications: morphine Allergy (Verified 05/07/18 17:40) CONTINUE taking the following medications NK 08/18/22 [History] - Review of Systems Constitutional: Fever, Chills, Weakness Eyes: No Symptoms Reported ENT: No Symptoms Reported Respiratory: Cough, Shortness of Breath, SOB with Excertion, Sputum Cardiovascular: No Symptoms Reported Gastrointestinal: No Symptoms Reported Genitourinary: No Symptoms Reported Musculoskeletal: See HPI, Leg Pain (RIGHT RIB PAIN ) Skin: No Symptoms Reported Neurological: Weakness - Physical Exam Vital Signs: Temperature 98.4 F Pulse Rate [Apical] 126 Pulse Rate 96 Respiratory Rate 24 Blood Pressure [Right Arm] 108/65 Blood Pressure [Left Arm] 97/53 Blood Pressure 84/52 O2 Sat by Pulse Oximetry 93 Oriented: Normal Eyes: Normal Ear: Normal Nose: Normal Throat: Normal Respiratory: Diminished Throughout, Rhonchi Throughout Cardiovascular: Tachycardia : Normal Auscultation: Bowel Sounds: Normal Palpation: Normal Tenderness: Normal Skin: Normal Musculoskeletal: Right (RIGHT SIDE RIB PAIN ) Psychiatric: Normal Mood Description: Calm Affect: Normal Speech Pattern: Clear - Assessment/Plan (1) RLL pneumonia Qualifiers: Pneumonia type: due to unspecified organism Qualified Code(s): J18.9 - Pneumonia, unspecified organism Status: Acute Plan: ADMIT, NORMAL SALINE AT 80 ML/HR, LEVAQUIN 500MG IV DAILY, ZOSYN 3.375G IV TID, DUONEBS QID, PULMICORT BID, LOVENOX 40MG SC DAILY, TORADOL 30MG IV Q6H, THE POTASSIUM AND MAGNESIUM PROTOCOLS, ZOFRAN 4MG IV Q8H PRN, NORCO 5/325MG PO Q8H PRN. (2) Empyema lung Status: Acute (3) Hypoxia Status: Acute (4) Acute hypokalemia Status: Acute - Allergies Allergies/Adverse Reactions: Allergies Allergy/AdvReac Type Severity Reaction Status Date / Time morphine Allergy Verified 05/07/18 17:40
[2022-08-20] MEDS: NS 1,000 ML IV 1,000 ML IV SCH ×3 (03:25→18:22)
[2022-08-20] MEDS: TORADOL 30 MG VIAL IVP SCH ×5 (04:30→23:38)
[2022-08-20] MEDS: ZOSYN VIAL 3.375 GRAMS 3.375 G in NS 100 ML IV 100 ML IV SCH ×3 (05:10→21:23)
[2022-08-20 05:18] LABS: BASOPHILS # (AUTO) 0.5 X10^3/uL (0.0-0.1); BASOPHILS % (AUTO) 3.7 % (0.2-1.0); HEMATOCRIT 25.6 % (36.0-47.0); HEMOGLOBIN 8.8 g/dL (12.0-16.0); LYMPHOCYTES # (AUTO) 0.4 X10^3/uL (1.3-2.9); LYMPHOCYTES % (AUTO) 2.9 % (21.0-51.0); MEAN CORPUSCULAR HEMOGLOBIN 26.5 pg (27.0-34.0); MEAN CORPUSCULAR HGB CONC 34.3 g/dL (33.0-35.0); MEAN CORPUSCULAR VOLUME 77.3 fL (80.0-100.0); MEAN PLATELET VOLUME 7.6 fL (7.4-11.0); MONOCYTES # (AUTO) 0.5 x10^3/uL (0.3-0.8); MONOCYTES % (AUTO) 3.4 % (0.0-13.0); NEUTROPHILS # (AUTO) 12.5 x10^3/uL (2.2-4.8); RED BLOOD COUNT 3.32 X10^6/uL (3.5-5.4); RED CELL DISTRIBUTION WIDTH 15.5 % (11.6-16.5); WHITE BLOOD COUNT 13.9 X10^3/uL (3.6-10.0)
[2022-08-20 05:30] LABS: ALANINE AMINOTRANSFERASE 35 Units/L (12-78); ALBUMIN 1.9 g/dL (3.4-5.0); ALKALINE PHOSPHATASE 165 Units/L (46-116); ASPARTATE AMINO TRANSFERASE 16 Units/L (15-37); BLOOD UREA NITROGEN 21 mg/dL (7-18); CARBON DIOXIDE 28.4 mmol/L (21-32); CHLORIDE 107 mmol/L (98-107); COR CA(FOR HYPOALB) 9.7 mg/dL (8.5-10.1); CREATININE 0.59 mg/dL (0.55-1.02); MAGNESIUM 1.9 mg/dL (1.7-2.9); SODIUM 141 mmol/L (136-145); TOTAL PROTEIN 6.3 g/dL (6.4-8.2); eGFR NON BLACK RACES > 60 (>60)
[2022-08-20] MEDS: MAGNESIUM SULFATE 1 GRAM/100 mL PREMIX 1 G/100 ML BAG IV PRN ×2 (06:09→11:34)
--- NOTE | 2022-08-20 06:56 | RAD ---
CHEST, 1 VIEWHISTORY: SOBStudy: Single view of the chest.Comparison:August 18, 2022Findings:Cardiomegaly.Mild pulmonary vascular congestion. Moderate to large right effusion with adjacent atelectasis, not significantly changed. Osseous structures demonstrate no acute abnormality.IMPRESSION:1. No significant change from prior.Electronically signed by: BRITTNEY HERNANDEZ (Aug 20, 2022 06:53:05)
[2022-08-20] MEDS: K-DUR TAB 20 MEQ PO PRN (08:16)
[2022-08-20] MEDS: LEVAQUIN PREMIX IV 500 MG 500 MG/100 ML BAG IV SCH (08:16)
[2022-08-20] MEDS: LOVENOX INJ 40 MG SYR SC SCH (08:26)
[2022-08-20] MEDS: PULMICORT NEB TX 0.5 MG NEB SCH ×2 (08:51→21:30)
[2022-08-20] MEDS: DUONEB 0.5 MG/3 MG (3 mL) NEB SCH ×4 (08:51→21:30)
--- NOTE | 2022-08-20 09:48 | DR.PROGNOT ---
Hospital Progress Notes - Progress Note for Day of: Progress Note Date: 08/20/22 - Chief Complaint Chief Complaint: seems to be more comfortable tody .. having moderate cough and RT chest pain . chest X Ray is the same . afebrile , - Past Medical Family Social History Past Med/Fam/Surg Hx: No changes since H&P Allergies: Allergies morphine Allergy (Verified 05/07/18 17:40) - Review Of Systems ROS: No change since H&P - Vital Signs Vital Signs: Temperature 97.7 F Pulse Rate [Apical] 126 Pulse Rate 96 Respiratory Rate 43 Blood Pressure [Right Arm] 108/65 Blood Pressure [Left Arm] 97/53 Blood Pressure 96/60 O2 Sat by Pulse Oximetry 100 - Physical Exam Oriented: Normal Eyes: Normal Ear: Normal Nose: Normal Throat: Normal Cardiovascular: Tachycardia : Normal GI:Auscultation: Normal GI:Palpation: Normal GI: Tenderness: Normal Skin: Normal Musculoskeletal: Right (RIGHT SIDE RIB PAIN ) Psychiatric: Normal Mood Description: Calm Affect: Normal Speech Pattern: Clear, Appropriate - Laboratory and Diagnostics Result Diagrams: 08/20/22 04:40 08/20/22 04:40 Labs: 08/19/22 02:32 Sputum - Expectorated Sputum - Preliminary Laboratory WBC 13.9 X10^3/uL (3.6-10.0) H 08/20/22 04:40 RBC 3.32 X10^6/uL (3.5-5.4) L 08/20/22 04:40 Hgb 8.8 g/dL (12.0-16.0) L 08/20/22 04:40 Hct 25.6 % (36.0-47.0) L 08/20/22 04:40 MCV 77.3 fL (80.0-100.0) L 08/20/22 04:40 MCH 26.5 pg (27.0-34.0) L 08/20/22 04:40 MCHC 34.3 g/dL (33.0-35.0) 08/20/22 04:40 RDW 15.5 % (11.6-16.5) 08/20/22 04:40 Plt Count 234 X10^3/uL (150.0-450.0) 08/20/22 04:40 Plt Count Comment Adequate (ADEQUATE) 08/19/22 04:39 MPV 7.6 fL (7.4-11.0) 08/20/22 04:40 Neut % (Auto) 90.0 % (42.0-75.0) H 08/20/22 04:40 Lymph % (Auto) 2.9 % (21.0-51.0) L 08/20/22 04:40 [place] % (Auto) 3.4 % (0.0-13.0) 08/20/22 04:40 Eos % (Auto) 0.0 % (0.9-2.9) L 08/20/22 04:40 Baso % (Auto) 3.7 % (0.2-1.0) H 08/20/22 04:40 Neut # (Auto) 12.5 x10^3/uL (2.2-4.8) H 08/20/22 04:40 Lymph # (Auto) 0.4 X10^3/uL (1.3-2.9) L 08/20/22 04:40 [place] # (Auto) 0.5 x10^3/uL (0.3-0.8) 08/20/22 04:40 Eos # (Auto) 0.0 x10^3/uL (0.0-0.2) 08/20/22 04:40 Baso # (Auto) 0.5 X10^3/uL (0.0-0.1) H 08/20/22 04:40 Absolute Nucleated RBC 0.0 /100WBC 08/20/22 04:40 Total Counted 100 08/19/22 04:39 Neutrophils % (Manual) 88 % (39-76) H 08/19/22 04:39 Band Neutrophils % 7 % (0-10) 08/19/22 04:39 Lymphocytes % (Manual) 2 % (13-43) L 08/19/22 04:39 Monocytes % (Manual) 3 % (4-9) L 08/19/22 04:39 Plt Morphology Comment Normal (NORMAL) 08/19/22 04:39 RBC Morphology Normal (NORMAL) 08/19/22 04:39 D-Dimer 0.96 ug/ml (0.0-0.57) H 08/18/22 16:55 Sample Site Rrad 08/19/22 09:10 ABG pH 7.470 (7.35-7.45) H 08/19/22 09:10 ABG pCO2 35.0 mmHg (35.0-45.0) 08/19/22 09:10 ABG pO2 49.0 mmHg (80.0-100.0) L* 08/19/22 09:10 ABG HCO3 25.5 mmol/L (22-26) 08/19/22 09:10 ABG O2 Saturation 87.0 % (90-100) L 08/19/22 09:10 ABG Base Excess 2.0 mmol/L (-2.0-2.0) 08/19/22 09:10 Abelardo Test Pos 08/19/22 09:10 A-a Gradient 107.0 mmHg 08/19/22 09:10 FiO2 28.0 08/19/22 09:10 Blood Gas Comments Semaj well. [email or web address] 89 08/19/22 09:10 Sodium 141 mmol/L (136-145) 08/20/22 04:40 Corrected Sodium TNP 08/20/22 04:40 Potassium 3.3 mmol/L (3.5-5.1) L 08/20/22 04:40 Chloride 107 mmol/L (98-107) 08/20/22 04:40 Carbon Dioxide 28.4 mmol/L (21-32) 08/20/22 04:40 BUN 21 mg/dL (7-18) H 08/20/22 04:40 Creatinine 0.59 mg/dL (0.55-1.02) 08/20/22 04:40 Est GFR (MDRD) Af Amer > 60 (>60) 08/20/22 04:40 Est GFR (MDRD) Non-Af > 60 (>60) 08/20/22 04:40 Glucose 106 mg/dL (65-99) H 08/20/22 04:40 Lactic Acid 1.0 mmol/L (0.4-2.0) 08/18/22 16:55 Calcium 8.0 mg/dL (8.5-10.1) L 08/20/22 04:40 Corrected Calcium 9.7 mg/dL (8.5-10.1) 08/20/22 04:40 Magnesium 1.9 mg/dL (1.7-2.9) 08/20/22 04:40 Total Bilirubin 0.40 mg/dL (0.2-1.0) 08/20/22 04:40 AST 16 Units/L (15-37) 08/20/22 04:40 ALT 35 Units/L (12-78) 08/20/22 04:40 Alkaline Phosphatase 165 Units/L (46-116) H 08/20/22 04:40 Creatine Kinase 24 Units/L (26-192) L 08/19/22 04:39 Troponin I High Sens 5.6 ng/L (4.0-60.0) 08/19/22 04:39 C-Reactive Protein 370.90 mg/L (0-3.0) H 08/20/22 04:40 B-Natriuretic Peptide 210 pg/mL (0-79) H 08/20/22 04:40 Total Protein 6.3 g/dL (6.4-8.2) L 08/20/22 04:40 Albumin 1.9 g/dL (3.4-5.0) L 08/20/22 04:40 Globulin 4.4 g/dL (2.5-4.5) 08/20/22 04:40 Albumin/Globulin Ratio 0.4 Ratio (1.1-2.1) L 08/20/22 04:40 Specimen Type Clean catch urine 08/18/22 17: Urine Color Yellow (YELLOW) 08/18/22 17: Urine Appearance Slightly hazy (CLEAR) 08/18/22 17: Urine pH 6.0 (5.0 - 8.0) 08/18/22 17: Ur Specific [place] 1.010 (1.000-1.030) 08/18/22 17: Urine Protein 1+ (NEGATIVE) 08/18/22 17: Urine Glucose (UA) Negative (NEGATIVE) 08/18/22 17: Urine Ketones Negative (NEGATIVE) 08/18/22 17: Urine Blood Negative (NEGATIVE) 08/18/22 17: Urine Nitrite Negative (NEGATIVE) 08/18/22 17: Urine Bilirubin Negative (NEGATIVE) 08/18/22 17: Urine Urobilinogen 1+ (NORMAL) 08/18/22 17: Ur Leukocyte Esterase Negative (NEGATIVE) 08/18/22 17: Urine RBC 0-2 /HPF (0-3) 10/13/22 17:22 Urine WBC None seen /HPF (0-5) 08/18/22 17: Ur Squamous Epith Cells Few /HPF (NEGATIVE) 08/18/22 17: Ur Renal Epithelial Cell Rare /HPF (NEGATIVE) 08/18/22 17:22 Amorphous Sediment 1+ /HPF (NEGATIVE) 08/18/22 17:22 Urine Bacteria Trace /HPF (NEGATIVE) 08/18/22 17: Hyaline Casts Rare /LPF (NEGATIVE) 08/18/22 17: Ur Culture Indicated? No/not indicated 08/18/22 17:22 SARS-CoV-2 (PCR) Negative (NEGATIVE) 08/18/22 17: Influenza Type A (PCR) Negative (NEGATIVE) 08/18/22 17: Influenza Type B (PCR) Negative (NEGATIVE) 08/18/22 17: RSV (PCR) Negative (NEGATIVE) 08/18/22 17: Resp Viral Panel (PCR) Cancelled 08/19/22 09:00 - Assessment and Plan 1: RT pleural effusion ..possible pneumonia . same plan . thoracentesis if the effusion is getting larger or the Pt is more symptomatic .. chest X Ray in am . - Problem Patient Problems: Patient Problems RLL pneumonia (Acute) J18.9 Empyema lung (Acute) J86.9 Hypoxia (Acute) R09.02 Acute hypokalemia (Acute) E87.6
[2022-08-20] MEDS ORDERED: NS 100 ML IV 100 ML ONE (13:22)
[2022-08-20] MEDS: CIPRO IV 400 MG PREMIX* 400 MG/200 ML IV.SOLN. IV SCH (20:51)
[2022-08-20] MEDS ORDERED: TUSSIONEX PENNKINETIC SUSP PO PRN (22:05)
[2022-08-20] MEDS: ROBITUSSIN DM PO PRN (22:10)
--- NOTE | 2022-08-20 23:10 | PCM.PROG ---
Progress Note - Progress Note for Day of Date of Exam: 08/20/22 - Subjective Subjective: WAS ADMITTED TO THE HOSPITAL FOR TREATMENT OF RIGHT LOWER LOBE PNEUMONIA, EMPYEMA, HYPOXIA, AND RIGHT PLEURAL EFFUSION. SHE WAS IN MILD RESPIRATORY DISTRESS UPON ADMISSION. TODAY, SHE IS ALERT AND ORIENTED, SITTING UP IN BED ON MORNING ROUNDS. SHE CONTINUES WITH COMPLAINTS OF SHORTNESS OF BREATH AND RIGHT SIDE RIB PAIN, BUT REPORTS SLIGHT IMPROVEMENT IN SYMPTOMS SINCE YESTERDAY. HER OXYGEN SATURATIONS REMAINED ABOVE 90 THROUGHOUT THE NIGHT. SHE HAS BEEN AFEBRILE SINCE YESTERDAY. HER BLOOD PRESSURE DID DROP TO THE 70s/50s THROUGHOUT THE NIGHT. HER VITALS THIS MORNING ARE: 97.7-79-25-95%-93/60. LABS WERE OBTAINED. WBC 13.9, RBC 3.32, HGB 8.8, HCT 25.6, SODIUM 141, POTASSIUM 3.3, CHLORIDE 107, BUN 21, CREATININE 0.59, GLUCOSE 106, CALCIUM 8.0, MAGNESIUM 1.9, AST 16, ALT 35, ALK PHOS 165, ALK PHOS 165, CRP 370.90, BNP 210, TOTAL PROTEIN 6.3, ALBUMIN 1.9. BLOOD AND SPUTUM CULTURES ARE PENDING. HIV PENDING. RESPIRATORY VIRAL PANEL IS ALSO PENDING. A CHEST XRAY WAS REPEATED AND REVEALED: Cardiomegaly. Mild pulmonary vascular congestion. Moderate to large right effusion with adjacent atelectasis, not significantly changed. Osseous structures demonstrate no acute abnormality. SHE IS CURRENTLY RECEIVING NORMAL SALINE AT 80 ML/HR, LEVAQUIN 500MG IV DAILY, ZOSYN 3.375G IV TID, DUONEBS QID, PULMICORT BID, LOVENOX 40MG SC DAILY, TORADOL 30MG IV Q6H, THE POTASSIUM AND MAGNESIUM PROTOCOLS, ZOFRAN 4MG IV Q8H PRN, NORCO 5/325MG PO Q8H PRN. CONSULTED WITH PATIENT. WE AGREE TO CONTINUE TO MONITOR PATIENT AT THIS TIME. PATIENT REPORTS THAT SHE FEELS FLUSHED WHEN SHE RECEIVES THE LEVAQUIN. WE WILL DISCONTINUE THE LEVAQUIN TODAY AND ADD CIPRO 400MG IV Q12H. OTHERWISE, WE PLAN TO FOLLOW-UP WITH AM LABS AND CHEST XRAY AND CONTINUE TO MONITOR. TIME SPENT ON CLINICAL ASSESSMENT, REVIEWING LABS AND IMAGING, DECISION MAKING, AND DOCUMENTATION GREATER THAN 45 MINUTES. - Past Medical Family Social History Past Med/Fam/Surg Hx: No changes since H&P Allergies: Allergies morphine Allergy (Verified 05/07/18 17:40) - Review of Systems ROS: No change since H&P - Vital Signs and I&O's Vital Signs: Temperature 98.2 F Pulse Rate [Apical] 126 Pulse Rate 112 Respiratory Rate 24 Blood Pressure [Right Arm] 108/65 Blood Pressure [Left Arm] 97/53 Blood Pressure 92/52 O2 Sat by Pulse Oximetry 98 Intake and Output: Intake & Output 08/18/22 08/19/22 08/20/22 08/21/22 11:59 11:59 11:59 11:59 Intake Total 760 / 760 3779 / 3779 1760 / 1760 Output Total 200 / 200 500 / 500 Balance 560 / 560 3279 / 3279 1760 / 1760 - Physical Exam Oriented: Normal Eyes: Normal Ear: Normal Nose: Normal Throat: Normal Respiratory: Generalized, Diminished, Rhonchi Cardiovascular: Normal : Normal Auscultation: Bowel Sounds: Normal Palpation: Normal Tenderness: Normal Skin: Normal Musculoskeletal: Right (RIGHT SIDE RIB PAIN ) Psychiatric: Normal Mood Description: Calm Affect: Normal Speech Pattern: Clear, Appropriate - Laboratory and Diagnostics Result Diagrams: 08/20/22 04:40 08/20/22 17:37 Labs: 08/18/22 17:03 Blood Blood Culture - Preliminary 08/18/22 16:55 Blood Blood Culture - Preliminary 08/19/22 02:32 Sputum - Expectorated Sputum Sputum Culture - Preliminary 08/19/22 02:32 Sputum - Expectorated Sputum - Preliminary Laboratory WBC 13.9 X10^3/uL (3.6-10.0) H 08/20/22 04:40 RBC 3.32 X10^6/uL (3.5-5.4) L 08/20/22 04:40 Hgb 8.8 g/dL (12.0-16.0) L 08/20/22 04:40 Hct 25.6 % (36.0-47.0) L 08/20/22 04:40 MCV 77.3 fL (80.0-100.0) L 08/20/22 04:40 MCH 26.5 pg (27.0-34.0) L 08/20/22 04:40 MCHC 34.3 g/dL (33.0-35.0) 08/20/22 04:40 RDW 15.5 % (11.6-16.5) 08/20/22 04:40 Plt Count 234 X10^3/uL (150.0-450.0) 08/20/22 04:40 Plt Count Comment Adequate (ADEQUATE) 08/19/22 04:39 MPV 7.6 fL (7.4-11.0) 08/20/22 04:40 Neut % (Auto) 90.0 % (42.0-75.0) H 08/20/22 04:40 Lymph % (Auto) 2.9 % (21.0-51.0) L 08/20/22 04:40 [place] % (Auto) 3.4 % (0.0-13.0) 08/20/22 04:40 Eos % (Auto) 0.0 % (0.9-2.9) L 08/20/22 04:40 Baso % (Auto) 3.7 % (0.2-1.0) H 08/20/22 04:40 Neut # (Auto) 12.5 x10^3/uL (2.2-4.8) H 08/20/22 04:40 Lymph # (Auto) 0.4 X10^3/uL (1.3-2.9) L 08/20/22 04:40 [place] # (Auto) 0.5 x10^3/uL (0.3-0.8) 08/20/22 04:40 Eos # (Auto) 0.0 x10^3/uL (0.0-0.2) 08/20/22 04:40 Baso # (Auto) 0.5 X10^3/uL (0.0-0.1) H 08/20/22 04:40 Absolute Nucleated RBC 0.0 /100WBC 08/20/22 04:40 Total Counted 100 08/19/22 04:39 Neutrophils % (Manual) 88 % (39-76) H 08/19/22 04:39 Band Neutrophils % 7 % (0-10) 08/19/22 04:39 Lymphocytes % (Manual) 2 % (13-43) L 08/19/22 04:39 Monocytes % (Manual) 3 % (4-9) L 08/19/22 04:39 Plt Morphology Comment Normal (NORMAL) 08/19/22 04:39 RBC Morphology Normal (NORMAL) 08/19/22 04:39 D-Dimer 0.96 ug/ml (0.0-0.57) H 08/18/22 16:55 Sample Site Rrad 08/19/22 09:10 ABG pH 7.470 (7.35-7.45) H 08/19/22 09:10 ABG pCO2 35.0 mmHg (35.0-45.0) 08/19/22 09:10 ABG pO2 49.0 mmHg (80.0-100.0) L* 08/19/22 09:10 ABG HCO3 25.5 mmol/L (22-26) 08/19/22 09:10 ABG O2 Saturation 87.0 % (90-100) L 08/19/22 09:10 ABG Base Excess 2.0 mmol/L (-2.0-2.0) 08/19/22 09:10 Abelardo Test Pos 08/19/22 09:10 A-a Gradient 107.0 mmHg 08/19/22 09:10 FiO2 28.0 08/19/22 09:10 Blood Gas Comments Semaj well. [email or web address] 89 08/19/22 09:10 Sodium 141 mmol/L (136-145) 08/20/22 04:40 Corrected Sodium TNP 08/20/22 04:40 Potassium 3.5 mmol/L (3.5-5.1) 08/20/22 17:37 Chloride 107 mmol/L (98-107) 08/20/22 04:40 Carbon Dioxide 28.4 mmol/L (21-32) 08/20/22 04:40 BUN 21 mg/dL (7-18) H 08/20/22 04:40 Creatinine 0.59 mg/dL (0.55-1.02) 08/20/22 04:40 Est GFR (MDRD) Af Amer > 60 (>60) 08/20/22 04:40 Est GFR (MDRD) Non-Af > 60 (>60) 08/20/22 04:40 Glucose 106 mg/dL (65-99) H 08/20/22 04:40 Lactic Acid 1.0 mmol/L (0.4-2.0) 08/18/22 16:55 Calcium 8.0 mg/dL (8.5-10.1) L 08/20/22 04:40 Corrected Calcium 9.7 mg/dL (8.5-10.1) 08/20/22 04:40 Magnesium 1.9 mg/dL (1.7-2.9) 08/20/22 04:40 Total Bilirubin 0.40 mg/dL (0.2-1.0) 08/20/22 04:40 AST 16 Units/L (15-37) 08/20/22 04:40 ALT 35 Units/L (12-78) 08/20/22 04:40 Alkaline Phosphatase 165 Units/L (46-116) H 08/20/22 04:40 Creatine Kinase 24 Units/L (26-192) L 08/19/22 04:39 Troponin I High Sens 5.6 ng/L (4.0-60.0) 08/19/22 04:39 C-Reactive Protein 370.90 mg/L (0-3.0) H 08/20/22 04:40 B-Natriuretic Peptide 210 pg/mL (0-79) H 08/20/22 04:40 Total Protein 6.3 g/dL (6.4-8.2) L 08/20/22 04:40 Albumin 1.9 g/dL (3.4-5.0) L 08/20/22 04:40 Globulin 4.4 g/dL (2.5-4.5) 08/20/22 04:40 Albumin/Globulin Ratio 0.4 Ratio (1.1-2.1) L 08/20/22 04:40 Specimen Type Clean catch urine 08/18/22 17: Urine Color Yellow (YELLOW) 08/18/22 17: Urine Appearance Slightly hazy (CLEAR) 08/18/22 17: Urine pH 6.0 (5.0 - 8.0) 08/18/22 17: Ur Specific [place] 1.010 (1.000-1.030) 08/18/22 17: Urine Protein 1+ (NEGATIVE) 08/18/22 17:22 Urine Glucose (UA) Negative (NEGATIVE) 08/18/22 17: Urine Ketones Negative (NEGATIVE) 08/18/22 17: Urine Blood Negative (NEGATIVE) 08/18/22: Urine Nitrite Negative (NEGATIVE) 08/18/22 17: Urine Bilirubin Negative (NEGATIVE) 08/18/22 17: Urine Urobilinogen 1+ (NORMAL) 08/18/22 17:22 Ur Leukocyte Esterase Negative (NEGATIVE) 08/18/22 17:22 Urine RBC 0-2 /HPF (0-3) 08/18/22 17: Urine WBC None seen /HPF (0-5) 08/18/22 17: Ur Squamous Epith Cells Few /HPF (NEGATIVE) 08/18/22 17: Ur Renal Epithelial Cell Rare /HPF (NEGATIVE) 08/18/22 17: Amorphous Sediment 1+ /HPF (NEGATIVE) 08/18/22 17: Urine Bacteria Trace /HPF (NEGATIVE) 08/18/22 17: Hyaline Casts Rare /LPF (NEGATIVE) 08/18/22 17: Ur Culture Indicated? No/not indicated 08/18/22 17: SARS-CoV-2 (PCR) Negative (NEGATIVE) 08/18/22 17: Influenza Type A (PCR) Negative (NEGATIVE) 08/18/22 17: Influenza Type B (PCR) Negative (NEGATIVE) 08/18/22 17: RSV (PCR) Negative (NEGATIVE) 08/18/22 17: Resp Viral Panel (PCR) Cancelled 08/19/22 09:00 - Plan (1) RLL pneumonia Status: Acute Qualifiers: Pneumonia type: due to unspecified organism Qualified Code(s): J18.9 - Pneumonia, unspecified organism Plan: NORMAL SALINE AT 80 ML/HR, CIPRO 400MG IV Q12H, ZOSYN 3.375G IV TID, DUONEBS QID, PULMICORT BID, LOVENOX 40MG SC DAILY, TORADOL 30MG IV Q6H, THE POTASSIUM AND MAGNESIUM PROTOCOLS, ZOFRAN 4MG IV Q8H PRN, NORCO 5/325MG PO Q8H PRN. (2) Empyema lung Status: Acute (3) Hypoxia Status: Acute (4) Acute hypokalemia Status: Acute
[2022-08-21] MEDS: ROBITUSSIN DM PO PRN ×4 (02:15→20:30)
[2022-08-21] MEDS: TORADOL 30 MG VIAL IVP SCH ×4 (04:00→21:41)
[2022-08-21 05:30] LABS: BASOPHILS % (AUTO) 0.2 % (0.2-1.0); EOSINOPHILS % (AUTO) 0.1 % (0.9-2.9); HEMATOCRIT 23.8 % (36.0-47.0); HEMOGLOBIN 8.3 g/dL (12.0-16.0); LYMPHOCYTES # (AUTO) 0.7 X10^3/uL (1.3-2.9); LYMPHOCYTES % (AUTO) 6.7 % (21.0-51.0); MEAN CORPUSCULAR HEMOGLOBIN 26.9 pg (27.0-34.0); MEAN CORPUSCULAR HGB CONC 34.7 g/dL (33.0-35.0); MEAN CORPUSCULAR VOLUME 77.6 fL (80.0-100.0); MEAN PLATELET VOLUME 7.6 fL (7.4-11.0); MONOCYTES # (AUTO) 0.4 x10^3/uL (0.3-0.8); MONOCYTES % (AUTO) 4.4 % (0.0-13.0); NEUTROPHILS # (AUTO) 8.7 x10^3/uL (2.2-4.8); NEUTROPHILS % (AUTO) 88.6 % (42.0-75.0); RED BLOOD COUNT 3.07 X10^6/uL (3.5-5.4); RED CELL DISTRIBUTION WIDTH 15.5 % (11.6-16.5); WHITE BLOOD COUNT 9.9 X10^3/uL (3.6-10.0)
[2022-08-21] MEDS: NS 1,000 ML IV 1,000 ML IV SCH ×2 (05:41→18:08)
[2022-08-21] MEDS: ZOSYN VIAL 3.375 GRAMS 3.375 G in NS 100 ML IV 100 ML IV SCH ×3 (05:41→21:42)
[2022-08-21 05:54] LABS: ALANINE AMINOTRANSFERASE 29 Units/L (12-78); ALBUMIN 1.7 g/dL (3.4-5.0); ALKALINE PHOSPHATASE 129 Units/L (46-116); ASPARTATE AMINO TRANSFERASE 19 Units/L (15-37); BLOOD UREA NITROGEN 17 mg/dL (7-18); CALCIUM 7.5 mg/dL (8.5-10.1); CARBON DIOXIDE 23.4 mmol/L (21-32); CHLORIDE 108 mmol/L (98-107); COR CA(FOR HYPOALB) 9.3 mg/dL (8.5-10.1); CREATININE 0.51 mg/dL (0.55-1.02); MAGNESIUM 1.6 mg/dL (1.7-2.9); SODIUM 140 mmol/L (136-145); TOTAL PROTEIN 5.6 g/dL (6.4-8.2); eGFR NON BLACK RACES > 60 (>60)
[2022-08-21] MEDS: K-DUR TAB 20 MEQ PO PRN ×2 (06:39→20:30)
--- NOTE | 2022-08-21 07:45 | RAD ---
CHEST, 1 VIEWHISTORY: SOBStudy: Single view of the chest.Comparison:August 20, 2022Findings:Cardiomegaly. No change in the appearance of moderate right effusion and basilar atelectasis. Osseous structures demonstrate no acute abnormality.IMPRESSION:1. No change from prior.Electronically signed by: BRITTNEY HERNANDEZ (Aug 21, 2022 07:43:23)
[2022-08-21] MEDS: DUONEB 0.5 MG/3 MG (3 mL) NEB SCH ×4 (08:17→20:25)
[2022-08-21] MEDS: PULMICORT NEB TX 0.5 MG NEB SCH ×2 (08:17→20:25)
[2022-08-21] MEDS: CIPRO IV 400 MG PREMIX* 400 MG/200 ML IV.SOLN. IV SCH ×2 (09:35→20:30)
[2022-08-21] MEDS: LOVENOX INJ 40 MG SYR SC SCH (09:36)
[2022-08-21] MEDS: MAGNESIUM SULFATE 1 GRAM/100 mL PREMIX 1 G/100 ML BAG IV PRN ×2 (09:36→11:04)
[2022-08-22] MEDS: ROBITUSSIN DM PO PRN ×4 (02:07→20:13)
[2022-08-22] MEDS: TORADOL 30 MG VIAL IVP SCH ×4 (03:14→22:16)
[2022-08-22 05:17] LABS: BASOPHILS % (AUTO) 0.6 % (0.2-1.0); HEMATOCRIT 24.5 % (36.0-47.0); HEMOGLOBIN 8.3 g/dL (12.0-16.0); LYMPHOCYTES # (AUTO) 0.5 X10^3/uL (1.3-2.9); LYMPHOCYTES % (AUTO) 9.8 % (21.0-51.0); MEAN CORPUSCULAR HEMOGLOBIN 26.4 pg (27.0-34.0); MEAN CORPUSCULAR HGB CONC 33.9 g/dL (33.0-35.0); MEAN CORPUSCULAR VOLUME 77.9 fL (80.0-100.0); MEAN PLATELET VOLUME 7.4 fL (7.4-11.0); MONOCYTES # (AUTO) 0.4 x10^3/uL (0.3-0.8); MONOCYTES % (AUTO) 7.9 % (0.0-13.0); NEUTROPHILS # (AUTO) 3.9 x10^3/uL (2.2-4.8); NEUTROPHILS % (AUTO) 80.7 % (42.0-75.0); RED BLOOD COUNT 3.14 X10^6/uL (3.5-5.4); RED CELL DISTRIBUTION WIDTH 15.5 % (11.6-16.5); WHITE BLOOD COUNT 4.8 X10^3/uL (3.6-10.0)
[2022-08-22 05:36] LABS: ALANINE AMINOTRANSFERASE 42 Units/L (12-78); ALBUMIN 1.7 g/dL (3.4-5.0); ALKALINE PHOSPHATASE 156 Units/L (46-116); ASPARTATE AMINO TRANSFERASE 35 Units/L (15-37); BLOOD UREA NITROGEN 12 mg/dL (7-18); CALCIUM 7.4 mg/dL (8.5-10.1); CARBON DIOXIDE 25.1 mmol/L (21-32); CHLORIDE 107 mmol/L (98-107); COR CA(FOR HYPOALB) 9.2 mg/dL (8.5-10.1); CREATININE 0.51 mg/dL (0.55-1.02); MAGNESIUM 1.6 mg/dL (1.7-2.9); SODIUM 138 mmol/L (136-145); TOTAL PROTEIN 5.6 g/dL (6.4-8.2); eGFR NON BLACK RACES > 60 (>60)
[2022-08-22] MEDS: ZOSYN VIAL 3.375 GRAMS 3.375 G in NS 100 ML IV 100 ML IV SCH ×3 (05:43→22:16)
--- NOTE | 2022-08-22 06:32 | RAD ---
HISTORYRLL PNEUMONIA; SOBSTUDYCHEST, 1 [id number]/2022.TECHNIQUEAP view of the chestFINDINGSRight heart border is mostly silhouetted. Similar opacification of the right mid to lower lung. Mildly worse opacity in the left lower lung. Moderate right and small left pleural effusions suspected. No pneumothorax.IMPRESSIONModerate right and small left pleural effusions with associated opacities that may represent atelectasis or pneumonia.Electronically signed by: Wei Linares (Aug 22, 2022 06:31:35)
[2022-08-22] MEDS: NS 1,000 ML IV 1,000 ML IV SCH ×3 (08:01→16:51)
[2022-08-22] MEDS: PULMICORT NEB TX 0.5 MG NEB SCH ×2 (08:15→21:00)
[2022-08-22] MEDS: DUONEB 0.5 MG/3 MG (3 mL) NEB SCH ×4 (08:15→21:00)
[2022-08-22] MEDS: LOVENOX INJ 40 MG SYR SC SCH (08:15)
[2022-08-22] MEDS: CIPRO IV 400 MG PREMIX* 400 MG/200 ML IV.SOLN. IV SCH ×2 (08:16→20:12)
--- NOTE | 2022-08-22 10:56 | DR.PROGNOT ---
Hospital Progress Notes - Progress Note for Day of: Progress Note Date: 08/22/22 - Chief Complaint Chief Complaint: stable , still having RT chest pain and cough . chest X Ray is showing same RT pleural effusion and smaller one . WBC is normal . sputum culture shows Strepto coccus pneumoneu. afebrile . - Past Medical Family Social History Past Med/Fam/Surg Hx: No changes since H&P Allergies: Allergies morphine Allergy (Verified 05/07/18 17:40) - Review Of Systems ROS: No change since H&P - Vital Signs Vital Signs: Temperature 98.2 F Pulse Rate [Apical] 126 Pulse Rate 103 Respiratory Rate 24 Blood Pressure [Right Arm] 108/65 Blood Pressure [Left Arm] 97/53 Blood Pressure 122/75 O2 Sat by Pulse Oximetry 98 - Physical Exam Oriented: Normal Eyes: Normal Ear: Normal Nose: Normal Throat: Normal Respiratory: Generalized, Diminished, Rhonchi Cardiovascular: Normal : Normal GI:Auscultation: Normal GI:Palpation: Normal GI: Tenderness: Normal Skin: Normal Musculoskeletal: Right (RIGHT SIDE RIB PAIN ) Psychiatric: Normal Mood Description: Calm Affect: Normal Speech Pattern: Clear, Appropriate - Laboratory and Diagnostics Result Diagrams: 08/22/22 04:20 08/22/22 04:20 Labs: 08/19/22 02:32 Sputum - Expectorated Sputum Sputum Culture - Final Streptococcus Pneumoniae 08/19/22 02:32 Sputum - Expectorated Sputum - Final 08/18/22 17:03 Blood Blood Culture - Preliminary 08/18/22 16:55 Blood Blood Culture - Preliminary Laboratory WBC 4.8 X10^3/uL (3.6-10.0) 08/22/22 04:20 RBC 3.14 X10^6/uL (3.5-5.4) L 08/22/22 04:20 Hgb 8.3 g/dL (12.0-16.0) L 08/22/22 04:20 Hct 24.5 % (36.0-47.0) L 08/22/22 04:20 MCV 77.9 fL (80.0-100.0) L 08/22/22 04:20 MCH 26.4 pg (27.0-34.0) L 08/22/22 04:20 MCHC 33.9 g/dL (33.0-35.0) 08/22/22 04:20 RDW 15.5 % (11.6-16.5) 08/22/22 04:20 Plt Count 244 X10^3/uL (150.0-450.0) 08/22/22 04:20 Plt Count Comment Adequate (ADEQUATE) 08/19/22 04:39 MPV 7.4 fL (7.4-11.0) 08/22/22 04:20 Neut % (Auto) 80.7 % (42.0-75.0) H 08/22/22 04:20 Lymph % (Auto) 9.8 % (21.0-51.0) L 08/22/22 04:20 [place] % (Auto) 7.9 % (0.0-13.0) 08/22/22 04:20 Eos % (Auto) 1.0 % (0.9-2.9) 08/22/22 04:20 Baso % (Auto) 0.6 % (0.2-1.0) 08/22/22 04:20 Neut # (Auto) 3.9 x10^3/uL (2.2-4.8) 08/22/22 04:20 Lymph # (Auto) 0.5 X10^3/uL (1.3-2.9) L 08/22/22 04:20 [place] # (Auto) 0.4 x10^3/uL (0.3-0.8) 08/22/22 04:20 Eos # (Auto) 0.0 x10^3/uL (0.0-0.2) 08/22/22 04:20 Baso # (Auto) 0.0 X10^3/uL (0.0-0.1) 08/22/22 04:20 Absolute Nucleated RBC 0.0 /100WBC 08/22/22 04:20 Total Counted 100 08/19/22 04:39 Neutrophils % (Manual) 88 % (39-76) H 08/19/22 04:39 Band Neutrophils % 7 % (0-10) 08/19/22 04:39 Lymphocytes % (Manual) 2 % (13-43) L 08/19/22 04:39 Monocytes % (Manual) 3 % (4-9) L 08/19/22 04:39 Plt Morphology Comment Normal (NORMAL) 08/19/22 04:39 RBC Morphology Normal (NORMAL) 08/19/22 04:39 D-Dimer 0.96 ug/ml (0.0-0.57) H 08/18/22 16:55 Sample Site Rrad 08/19/22 09:10 ABG pH 7.470 (7.35-7.45) H 08/19/22 09:10 ABG pCO2 35.0 mmHg (35.0-45.0) 08/19/22 09:10 ABG pO2 49.0 mmHg (80.0-100.0) L* 08/19/22 09:10 ABG HCO3 25.5 mmol/L (22-26) 08/19/22 09:10 ABG O2 Saturation 87.0 % (90-100) L 08/19/22 09:10 ABG Base Excess 2.0 mmol/L (-2.0-2.0) 08/19/22 09:10 Abelardo Test Pos 08/19/22 09:10 A-a Gradient 107.0 mmHg 08/19/22 09:10 FiO2 28.0 08/19/22 09:10 Blood Gas Comments Semaj well. [email or web address] 89 08/19/22 09:10 Sodium 138 mmol/L (136-145) 08/22/22 04:20 Corrected Sodium TNP 08/22/22 04:20 Potassium 3.8 mmol/L (3.5-5.1) 08/22/22 04:20 Chloride 107 mmol/L (98-107) 08/22/22 04:20 Carbon Dioxide 25.1 mmol/L (21-32) 08/22/22 04:20 BUN 12 mg/dL (7-18) 08/22/22 04:20 Creatinine 0.51 mg/dL (0.55-1.02) L 08/22/22 04:20 Est GFR (MDRD) Af Amer > 60 (>60) 08/22/22 04:20 Est GFR (MDRD) Non-Af > 60 (>60) 08/22/22 04:20 Glucose 88 mg/dL (65-99) 08/22/22 04:20 Lactic Acid 1.0 mmol/L (0.4-2.0) 08/18/22 16:55 Calcium 7.4 mg/dL (8.5-10.1) L 08/22/22 04:20 Corrected Calcium 9.2 mg/dL (8.5-10.1) 08/22/22 04:20 Magnesium 1.6 mg/dL (1.7-2.9) L 08/22/22 04:20 Total Bilirubin 0.50 mg/dL (0.2-1.0) 08/22/22 04:20 AST 35 Units/L (15-37) 08/22/22 04:20 ALT 42 Units/L (12-78) 08/22/22 04:20 Alkaline Phosphatase 156 Units/L (46-116) H 08/22/22 04:20 Creatine Kinase 24 Units/L (26-192) L 08/19/22 04:39 Troponin I High Sens 5.6 ng/L (4.0-60.0) 08/19/22 04:39 C-Reactive Protein 94.00 mg/L (0-3.0) H 08/22/22 04:20 B-Natriuretic Peptide 558 pg/mL (0-79) H* 08/22/22 04:20 Total Protein 5.6 g/dL (6.4-8.2) L 08/22/22 04:20 Albumin 1.7 g/dL (3.4-5.0) L 08/22/22 04:20 Globulin 3.9 g/dL (2.5-4.5) 08/22/22 04:20 Albumin/Globulin Ratio 0.4 Ratio (1.1-2.1) L 08/22/22 04:20 Specimen Type Clean catch urine 08/18/22: Urine Color Yellow (YELLOW) 08/18/22: Urine Appearance Slightly hazy (CLEAR) 08/18/22: Urine pH 6.0 (5.0 - 8.0) 08/18/22: Ur Specific [place] 1.010 (1.000-1.030) 08/18/22: Urine Protein 1+ (NEGATIVE) 08/18/22 17: Urine Glucose (UA) Negative (NEGATIVE) 08/18/22 17: Urine Ketones Negative (NEGATIVE) 08/18/22: Urine Blood Negative (NEGATIVE) 08/18/22: Urine Nitrite Negative (NEGATIVE) 08/18/22 17:22 Urine Bilirubin Negative (NEGATIVE) 08/18/22 17:22 Urine Urobilinogen 1+ (NORMAL) 08/18/22 17:22 Ur Leukocyte Esterase Negative (NEGATIVE) 08/18/22 17:22 Urine RBC 0-2 /HPF (0-3) 08/18/22 17:22 Urine WBC None seen /HPF (0-5) 08/18/22 17:22 Ur Squamous Epith Cells Few /HPF (NEGATIVE) 08/18/22 17:22 Ur Renal Epithelial Cell Rare /HPF (NEGATIVE) 08/18/22 17: Amorphous Sediment 1+ /HPF (NEGATIVE) 08/18/22 17:22 Urine Bacteria Trace /HPF (NEGATIVE) 08/18/22 17: Hyaline Casts Rare /LPF (NEGATIVE) 08/18/22 17:22 Ur Culture Indicated? No/not indicated 08/18/22 17:22 SARS-CoV-2 (PCR) Negative (NEGATIVE) 08/18/22 17:22 HIV-1 RNA copies/mL 13,411 cpy/mL 08/19/22 04:39 HIV-1 RNA (PCR) log10 4.13 log 08/19/22 04:39 HIV-1 RNA (PCR) Interp Detected (Not Detected) H 08/19/22 04:39 Influenza Type A (PCR) Negative (NEGATIVE) 08/18/22 17: Influenza Type B (PCR) Negative (NEGATIVE) 08/18/22 17:22 RSV (PCR) Negative (NEGATIVE) 08/18/22 17:22 Resp Viral Panel (PCR) Cancelled 08/19/22 09:00 - Assessment and Plan 1: RT pleural effusion ..possible pneumonia . same plan . observe for now .. chest X Ray in am . - Problem Patient Problems: Patient Problems RLL pneumonia (Acute) J18.9 Empyema lung (Acute) J86.9 Hypoxia (Acute) R09.02 Acute hypokalemia (Acute) E87.6
[2022-08-22] MEDS: MAGNESIUM SULFATE 1 GRAM/100 mL PREMIX 1 G/100 ML BAG IV PRN ×2 (12:25→13:41)
[2022-08-22] MEDS: MUCOMYST 20% 200 MG/ML NEB SCH ×3 (13:12→21:24)
[2022-08-22] MEDS: TYLENOL 325 MG TAB PO PRN (15:24)
[2022-08-23] MEDS: TORADOL 30 MG VIAL IVP SCH ×4 (03:21→21:19)
[2022-08-23] MEDS: ROBITUSSIN DM PO PRN ×3 (03:22→21:19)
[2022-08-23] MEDS: NS 1,000 ML IV 1,000 ML IV SCH ×3 (03:29→21:16)
[2022-08-23 04:57] LABS: BASOPHILS % (AUTO) 0.5 % (0.2-1.0); EOSINOPHILS # (AUTO) 0.1 x10^3/uL (0.0-0.2); EOSINOPHILS % (AUTO) 1.7 % (0.9-2.9); HEMATOCRIT 23.6 % (36.0-47.0); HEMOGLOBIN 8.1 g/dL (12.0-16.0); LYMPHOCYTES # (AUTO) 0.4 X10^3/uL (1.3-2.9); LYMPHOCYTES % (AUTO) 9.9 % (21.0-51.0); MEAN CORPUSCULAR HEMOGLOBIN 26.5 pg (27.0-34.0); MEAN CORPUSCULAR HGB CONC 34.3 g/dL (33.0-35.0); MEAN CORPUSCULAR VOLUME 77.2 fL (80.0-100.0); MEAN PLATELET VOLUME 7.2 fL (7.4-11.0); MONOCYTES # (AUTO) 0.4 x10^3/uL (0.3-0.8); MONOCYTES % (AUTO) 9.7 % (0.0-13.0); NEUTROPHILS # (AUTO) 3.2 x10^3/uL (2.2-4.8); NEUTROPHILS % (AUTO) 78.2 % (42.0-75.0); RED BLOOD COUNT 3.06 X10^6/uL (3.5-5.4); RED CELL DISTRIBUTION WIDTH 14.9 % (11.6-16.5); WHITE BLOOD COUNT 4.1 X10^3/uL (3.6-10.0)
[2022-08-23 05:15] LABS: ALANINE AMINOTRANSFERASE 31 Units/L (12-78); ALBUMIN 1.6 g/dL (3.4-5.0); ALKALINE PHOSPHATASE 167 Units/L (46-116); ASPARTATE AMINO TRANSFERASE 20 Units/L (15-37); BLOOD UREA NITROGEN 8 mg/dL (7-18); CALCIUM 7.4 mg/dL (8.5-10.1); CARBON DIOXIDE 27.7 mmol/L (21-32); CHLORIDE 105 mmol/L (98-107); COR CA(FOR HYPOALB) 9.3 mg/dL (8.5-10.1); CREATININE 0.47 mg/dL (0.55-1.02); SODIUM 138 mmol/L (136-145); TOTAL PROTEIN 5.5 g/dL (6.4-8.2); eGFR NON BLACK RACES > 60 (>60)
[2022-08-23] MEDS: K-DUR TAB 20 MEQ PO PRN (05:34)
[2022-08-23] MEDS: ZOSYN VIAL 3.375 GRAMS 3.375 G in NS 100 ML IV 100 ML IV SCH ×3 (05:34→21:17)
--- NOTE | 2022-08-23 07:23 | RAD ---
HISTORYRLL PNEUMONIA; SOBSTUDYCHEST, 1 [id number]/2022.TECHNIQUEAP view of the chestFINDINGSPartial silhouetting of the right heart border. Similar appearing moderate right pleural effusion with associated opacity on the right. Small left pleural effusion with associated opacity at the left base. No pneumothorax. Soft tissue attenuation limits evaluation.IMPRESSIONNo significant change compared to prior radiograph.Electronically signed by: Wei Linares (Aug 23, 2022 07:22:15)
[2022-08-23] MEDS: PULMICORT NEB TX 0.5 MG NEB SCH ×2 (08:20→20:05)
[2022-08-23] MEDS: MUCOMYST 20% 200 MG/ML NEB SCH ×4 (08:20→20:05)
[2022-08-23] MEDS: DUONEB 0.5 MG/3 MG (3 mL) NEB SCH ×4 (08:20→20:05)
[2022-08-23] MEDS: LOVENOX INJ 40 MG SYR SC SCH (08:50)
[2022-08-23] MEDS: CIPRO IV 400 MG PREMIX* 400 MG/200 ML IV.SOLN. IV SCH ×2 (08:51→21:17)
--- NOTE | 2022-08-23 11:10 | PCM.PROG ---
Progress Note - Progress Note for Day of Date of Exam: 08/21/22 - Subjective Subjective: WAS ADMITTED TO THE HOSPITAL FOR TREATMENT OF RIGHT LOWER LOBE PNEUMONIA, EMPYEMA, HYPOXIA, AND RIGHT PLEURAL EFFUSION. SHE WAS IN MILD RESPIRATORY DISTRESS UPON ADMISSION. TODAY, SHE IS ALERT AND ORIENTED, SITTING UP IN BED ON MORNING ROUNDS. SHE CONTINUES WITH COMPLAINTS OF SHORTNESS OF BREATH AND RIGHT SIDE RIB PAIN, BUT REPORTS SLIGHT IMPROVEMENT IN SYMPTOMS SINCE YESTERDAY. HER OXYGEN SATURATIONS REMAINED ABOVE 90 THROUGHOUT THE NIGHT. SHE HAS BEEN AFEBRILE SINCE YESTERDAY. HER BLOOD PRESSURE DID DROP TO THE 70s/50s THROUGHOUT THE NIGHT. HER VITALS THIS MORNING ARE: 97.7-79-25-95%-93/60. LABS WERE OBTAINED. WBC 13.9, RBC 3.32, HGB 8.8, HCT 25.6, SODIUM 141, POTASSIUM 3.3, CHLORIDE 107, BUN 21, CREATININE 0.59, GLUCOSE 106, CALCIUM 8.0, MAGNESIUM 1.9, AST 16, ALT 35, ALK PHOS 165, ALK PHOS 165, CRP 370.90, BNP 210, TOTAL PROTEIN 6.3, ALBUMIN 1.9. BLOOD AND SPUTUM CULTURES ARE PENDING. HIV PENDING. RESPIRATORY VIRAL PANEL IS ALSO PENDING. A CHEST XRAY WAS REPEATED AND REVEALED: Cardiomegaly. Mild pulmonary vascular congestion. Moderate to large right effusion with adjacent atelectasis, not significantly changed. Osseous structures demonstrate no acute abnormality. SHE IS CURRENTLY RECEIVING NORMAL SALINE AT 80 ML/HR, LEVAQUIN 500MG IV DAILY, ZOSYN 3.375G IV TID, DUONEBS QID, PULMICORT BID, LOVENOX 40MG SC DAILY, TORADOL 30MG IV Q6H, THE POTASSIUM AND MAGNESIUM PROTOCOLS, ZOFRAN 4MG IV Q8H PRN, NORCO 5/325MG PO Q8H PRN. CONSULTED WITH PATIENT. WE AGREE TO CONTINUE TO MONITOR PATIENT AT THIS TIME. PATIENT REPORTS THAT SHE FEELS FLUSHED WHEN SHE RECEIVES THE LEVAQUIN. WE WILL DISCONTINUE THE LEVAQUIN TODAY AND ADD CIPRO 400MG IV Q12H. OTHERWISE, WE PLAN TO FOLLOW-UP WITH AM LABS AND CHEST XRAY AND CONTINUE TO MONITOR. TIME SPENT ON CLINICAL ASSESSMENT, REVIEWING LABS AND IMAGING, DECISION MAKING, AND DOCUMENTATION GREATER THAN 45 MINUTES. - Past Medical Family Social History Past Med/Fam/Surg Hx: No changes since H&P Allergies: Allergies morphine Allergy (Verified 05/07/18 17:40) - Review of Systems ROS: No change since H&P - Vital Signs and I&O's Vital Signs: Temperature 98.1 F Pulse Rate [Apical] 126 Pulse Rate 77 Respiratory Rate 20 Blood Pressure [Right Arm] 108/65 Blood Pressure [Left Arm] 97/53 Blood Pressure 112/74 O2 Sat by Pulse Oximetry 96 Intake and Output: Intake & Output 08/20/22 08/21/22 08/22/22 08/23/22 11:59 11:59 11:59 11:59 Intake Total 3779 / 3779 3560 / 3560 2600 / 2600 4141 / 4141 Output Total 500 / 500 Balance 3279 / 3279 3560 / 3560 2600 / 2600 4141 / 4141 - Physical Exam Oriented: Normal Eyes: Normal Ear: Normal Nose: Normal Throat: Normal Respiratory: Generalized, Diminished, Rhonchi Cardiovascular: Normal : Normal Auscultation: Bowel Sounds: Normal Palpation: Normal Tenderness: Normal Skin: Normal Musculoskeletal: Right (RIGHT SIDE RIB PAIN ) Psychiatric: Normal Mood Description: Calm Affect: Normal Speech Pattern: Clear - Laboratory and Diagnostics Result Diagrams: 08/23/22 04:20 08/23/22 08:46 Labs: 08/19/22 02:32 Sputum - Expectorated Sputum Sputum Culture - Final Streptococcus Pneumoniae 08/19/22 02:32 Sputum - Expectorated Sputum - Final 08/18/22 17:03 Blood Blood Culture - Preliminary 08/18/22 16:55 Blood Blood Culture - Preliminary Laboratory WBC 4.1 X10^3/uL (3.6-10.0) 08/23/22 04:20 RBC 3.06 X10^6/uL (3.5-5.4) L 08/23/22 04:20 Hgb 8.1 g/dL (12.0-16.0) L 08/23/22 04:20 Hct 23.6 % (36.0-47.0) L 08/23/22 04:20 MCV 77.2 fL (80.0-100.0) L 08/23/22 04:20 MCH 26.5 pg (27.0-34.0) L 08/23/22 04:20 MCHC 34.3 g/dL (33.0-35.0) 08/23/22 04:20 RDW 14.9 % (11.6-16.5) 08/23/22 04:20 Plt Count 243 X10^3/uL (150.0-450.0) 08/23/22 04:20 Plt Count Comment Adequate (ADEQUATE) 08/19/22 04:39 MPV 7.2 fL (7.4-11.0) L 08/23/22 04:20 Neut % (Auto) 78.2 % (42.0-75.0) H 08/23/22 04:20 Lymph % (Auto) 9.9 % (21.0-51.0) L 08/23/22 04:20 [place] % (Auto) 9.7 % (0.0-13.0) 08/23/22 04:20 Eos % (Auto) 1.7 % (0.9-2.9) 08/23/22 04:20 Baso % (Auto) 0.5 % (0.2-1.0) 08/23/22 04:20 Neut # (Auto) 3.2 x10^3/uL (2.2-4.8) 08/23/22 04:20 Lymph # (Auto) 0.4 X10^3/uL (1.3-2.9) L 08/23/22 04:20 [place] # (Auto) 0.4 x10^3/uL (0.3-0.8) 08/23/22 04:20 Eos # (Auto) 0.1 x10^3/uL (0.0-0.2) 08/23/22 04:20 Baso # (Auto) 0.0 X10^3/uL (0.0-0.1) 08/23/22 04:20 Absolute Nucleated RBC 0.1 /100WBC 08/23/22 04:20 Total Counted 100 08/19/22 04:39 Neutrophils % (Manual) 88 % (39-76) H 08/19/22 04:39 Band Neutrophils % 7 % (0-10) 08/19/22 04:39 Lymphocytes % (Manual) 2 % (13-43) L 08/19/22 04:39 Monocytes % (Manual) 3 % (4-9) L 08/19/22 04:39 Plt Morphology Comment Normal (NORMAL) 08/19/22 04:39 RBC Morphology Normal (NORMAL) 08/19/22 04:39 D-Dimer 0.96 ug/ml (0.0-0.57) H 08/18/22 16:55 Sample Site Rrad 08/19/22 09:10 ABG pH 7.470 (7.35-7.45) H 08/19/22 09:10 ABG pCO2 35.0 mmHg (35.0-45.0) 08/19/22 09:10 ABG pO2 49.0 mmHg (80.0-100.0) L* 08/19/22 09:10 ABG HCO3 25.5 mmol/L (22-26) 08/19/22 09:10 ABG O2 Saturation 87.0 % (90-100) L 08/19/22 09:10 ABG Base Excess 2.0 mmol/L (-2.0-2.0) 08/19/22 09:10 Abelardo Test Pos 08/19/22 09:10 A-a Gradient 107.0 mmHg 08/19/22 09:10 FiO2 28.0 08/19/22 09:10 Blood Gas Comments Semaj well. [email or web address] 89 08/19/22 09:10 Sodium 138 mmol/L (136-145) 08/23/22 04:20 Corrected Sodium TNP 08/23/22 04:20 Potassium 3.2 mmol/L (3.5-5.1) L 08/23/22 08:46 Chloride 105 mmol/L (98-107) 08/23/22 04:20 Carbon Dioxide 27.7 mmol/L (21-32) 08/23/22 04:20 BUN 8 mg/dL (7-18) 08/23/22 04:20 Creatinine 0.47 mg/dL (0.55-1.02) L 08/23/22 04:20 Est GFR (MDRD) Af Amer > 60 (>60) 08/23/22 04:20 Est GFR (MDRD) Non-Af > 60 (>60) 08/23/22 04:20 Glucose 100 mg/dL (65-99) H 08/23/22 04:20 Lactic Acid 1.0 mmol/L (0.4-2.0) 08/18/22 16:55 Calcium 7.4 mg/dL (8.5-10.1) L 08/23/22 04:20 Corrected Calcium 9.3 mg/dL (8.5-10.1) 08/23/22 04:20 Magnesium 1.7 mg/dL (1.7-2.9) 08/23/22 04:20 Total Bilirubin 0.60 mg/dL (0.2-1.0) 08/23/22 04:20 AST 20 Units/L (15-37) 08/23/22 04:20 ALT 31 Units/L (12-78) 08/23/22 04:20 Alkaline Phosphatase 167 Units/L (46-116) H 08/23/22 04:20 Creatine Kinase 24 Units/L (26-192) L 08/19/22 04:39 Troponin I High Sens 5.6 ng/L (4.0-60.0) 08/19/22 04:39 C-Reactive Protein 137.90 mg/L (0-3.0) H 08/23/22 04:20 B-Natriuretic Peptide 479 pg/mL (0-79) H 08/23/22 04:20 Total Protein 5.5 g/dL (6.4-8.2) L 08/23/22 04:20 Albumin 1.6 g/dL (3.4-5.0) L 08/23/22 04:20 Globulin 3.9 g/dL (2.5-4.5) 08/23/22 04:20 Albumin/Globulin Ratio 0.4 Ratio (1.1-2.1) L 08/23/22 04:20 Specimen Type Clean catch urine 08/18/22 17: Urine Color Yellow (YELLOW) 08/18/22 17: Urine Appearance Slightly hazy (CLEAR) 08/18/22 17: Urine pH 6.0 (5.0 - 8.0) 08/18/22: Ur Specific [place] 1.010 (1.000-1.030) 08/18/22 17: Urine Protein 1+ (NEGATIVE) 08/18/22 17:22 Urine Glucose (UA) Negative (NEGATIVE) 08/18/22 17: Urine Ketones Negative (NEGATIVE) 08/18/22 17:22 Urine Blood Negative (NEGATIVE) 08/18/22 17:22 Urine Nitrite Negative (NEGATIVE) 08/18/22 17: Urine Bilirubin Negative (NEGATIVE) 08/18/22 17: Urine Urobilinogen 1+ (NORMAL) 08/18/22 17:22 Ur Leukocyte Esterase Negative (NEGATIVE) 08/18/22 17:22 Urine RBC 0-2 /HPF (0-3) 08/18/22 17:22 Urine WBC None seen /HPF (0-5) 08/18/22 17:22 Ur Squamous Epith Cells Few /HPF (NEGATIVE) 08/18/22 17:22 Ur Renal Epithelial Cell Rare /HPF (NEGATIVE) 08/18/22 17: Amorphous Sediment 1+ /HPF (NEGATIVE) 08/18/22 17: Urine Bacteria Trace /HPF (NEGATIVE) 08/18/22 17: Hyaline Casts Rare /LPF (NEGATIVE) 08/18/22 17:22 Ur Culture Indicated? No/not indicated 08/18/22 17:22 SARS-CoV-2 (PCR) Negative (NEGATIVE) 08/18/22 17:22 HIV-1 RNA copies/mL 13,411 cpy/mL 08/19/22 04:39 HIV-1 RNA (PCR) log10 4.13 log 08/19/22 04:39 HIV-1 RNA (PCR) Interp Detected (Not Detected) H 08/19/22 04:39 Influenza Type A (PCR) Negative (NEGATIVE) 08/18/22 17:22 Influenza Type B (PCR) Negative (NEGATIVE) 08/18/22 17:22 RSV (PCR) Negative (NEGATIVE) 08/18/22 17:22 Resp Viral Panel (PCR) Cancelled 08/19/22 09:00 - Plan (1) RLL pneumonia Status: Acute Qualifiers: Pneumonia type: due to unspecified organism Qualified Code(s): J18.9 - Pneumonia, unspecified organism Plan: NORMAL SALINE AT 80 ML/HR, CIPRO 400MG IV Q12H, ZOSYN 3.375G IV TID, DUONEBS QID, PULMICORT BID, LOVENOX 40MG SC DAILY, TORADOL 30MG IV Q6H, THE POTASSIUM AND MAGNESIUM PROTOCOLS, ZOFRAN 4MG IV Q8H PRN, NORCO 5/325MG PO Q8H PRN. (2) Empyema lung Status: Acute (3) Hypoxia Status: Acute (4) Acute hypokalemia Status: Acute
--- NOTE | 2022-08-23 11:21 | PCM.PROG ---
Progress Note - Progress Note for Day of Date of Exam: 08/22/22 - Subjective Subjective: WAS ADMITTED TO THE HOSPITAL FOR TREATMENT OF RIGHT LOWER LOBE PNEUMONIA, EMPYEMA, HYPOXIA, AND RIGHT PLEURAL EFFUSION. SHE WAS IN MILD RESPIRATORY DISTRESS UPON ADMISSION. TODAY, SHE IS ALERT AND ORIENTED, SITTING UP IN BED ON MORNING ROUNDS. SHE CONTINUES WITH COMPLAINTS OF SHORTNESS OF BREATH AT TIMES, BUT REPORTS SLIGHT IMPROVEMENT IN SYMPTOMS SINCE WE SAW HER YESTERDAY. SHE REPORTS MODERATE IMPROVEMENT IN PAIN. HER OXYGEN SATURATIONS REMAINED ABOVE 90 THROUGHOUT THE NIGHT. SHE HAS BEEN AFEBRILE THROUGHOUT THE NIGHT. HER VITALS THIS MORNING ARE: 98.4-94-30-98%-122/75. SHE IS CURRENTLY UTILIZING NASAL CANNULA AT 2 LPM. LABS WERE OBTAINED. WBC 4.8, RBC 3.14, HGB 8.3, HCT 24.5, SODIUM 138, POTASSIUM 3.4, BUN 8, CREATININE 0.47, GLUCOSE 100, CALCIUM 7.4, AST 20, ALT 31, ALK PHOS 167, CRP 137.90, BNP 479, TOTAL PROTEIN 5.5, ALBUMIN 1.6. SPUTUM CULTURES ARE POSITIVE FOR STREPTOCOCCUS PNEUMONIAE. RESPIRATORY VIRAL PANEL ALSO REVEALED PRESENCE OF STAPHYLOCOCCUS AUREUS AND STREPTOCOCCUS PNEUMONIAE. A CHEST XRAY WAS REPEATED AND REVEALED: Moderate right and small left pleural effusions with associated opacities that may represent atelectasis or pneumonia. SHE IS CURRENTLY RECEIVING NORMAL SALINE AT 80 ML/HR, CIPRO 400MG IV Q12H, ZOSYN 3.375G IV TID, DUONEBS QID, PULMICORT BID, LOVENOX 40MG SC DAILY, TORADOL 30MG IV Q6H, THE POTASSIUM AND MAGNESIUM PROTOCOLS, ZOFRAN 4MG IV Q8H PRN, NORCO 5/325MG PO Q8H PRN. WE WILL ADD MUCOMYST TO HER NEB [place] QID TODAY. OTHERWISE, WE PLAN TO FOLLOW-UP WITH AM LABS AND CHEST XRAY AND CONTINUE TO MONITOR. TIME SPENT ON CLINICAL ASSESSMENT, REVIEWING LABS AND IMAGING, DECISION MAKING, AND DOCUMENTATION GREATER THAN 45 MINUTES. - Past Medical Family Social History Past Med/Fam/Surg Hx: No changes since H&P Allergies: Allergies morphine Allergy (Verified 05/07/18 17:40) - Review of Systems ROS: No change since H&P - Vital Signs and I&O's Vital Signs: Temperature 98.1 F Pulse Rate [Apical] 126 Pulse Rate 77 Respiratory Rate 20 Blood Pressure [Right Arm] 108/65 Blood Pressure [Left Arm] 97/53 Blood Pressure 112/74 O2 Sat by Pulse Oximetry 96 Intake and Output: Intake & Output 08/20/22 08/21/22 08/22/22 08/23/22 11:59 11:59 11:59 11:59 Intake Total 3779 / 3779 3560 / 3560 2600 / 2600 4141 / 4141 Output Total 500 / 500 Balance 3279 / 3279 3560 / 3560 2600 / 2600 4141 / 4141 - Physical Exam Oriented: Normal Eyes: Normal Ear: Normal Nose: Normal Throat: Normal Respiratory: Generalized, Diminished, Rhonchi Cardiovascular: Normal : Normal Auscultation: Bowel Sounds: Normal Palpation: Normal Tenderness: Normal Skin: Normal Musculoskeletal: Right (RIGHT SIDE RIB PAIN ) Psychiatric: Normal Mood Description: Calm Affect: Normal Speech Pattern: Clear - Laboratory and Diagnostics Result Diagrams: 08/23/22 04:20 08/23/22 08:46 Labs: 08/19/22 02:32 Sputum - Expectorated Sputum Sputum Culture - Final Streptococcus Pneumoniae 08/19/22 02:32 Sputum - Expectorated Sputum - Final 08/18/22 17:03 Blood Blood Culture - Preliminary 08/18/22 16:55 Blood Blood Culture - Preliminary Laboratory WBC 4.1 X10^3/uL (3.6-10.0) 08/23/22 04:20 RBC 3.06 X10^6/uL (3.5-5.4) L 08/23/22 04:20 Hgb 8.1 g/dL (12.0-16.0) L 08/23/22 04:20 Hct 23.6 % (36.0-47.0) L 08/23/22 04:20 MCV 77.2 fL (80.0-100.0) L 08/23/22 04:20 MCH 26.5 pg (27.0-34.0) L 08/23/22 04:20 MCHC 34.3 g/dL (33.0-35.0) 08/23/22 04:20 RDW 14.9 % (11.6-16.5) 08/23/22 04:20 Plt Count 243 X10^3/uL (150.0-450.0) 08/23/22 04:20 Plt Count Comment Adequate (ADEQUATE) 08/19/22 04:39 MPV 7.2 fL (7.4-11.0) L 08/23/22 04:20 Neut % (Auto) 78.2 % (42.0-75.0) H 08/23/22 04:20 Lymph % (Auto) 9.9 % (21.0-51.0) L 08/23/22 04:20 [place] % (Auto) 9.7 % (0.0-13.0) 08/23/22 04:20 Eos % (Auto) 1.7 % (0.9-2.9) 08/23/22 04:20 Baso % (Auto) 0.5 % (0.2-1.0) 08/23/22 04:20 Neut # (Auto) 3.2 x10^3/uL (2.2-4.8) 08/23/22 04:20 Lymph # (Auto) 0.4 X10^3/uL (1.3-2.9) L 08/23/22 04:20 [place] # (Auto) 0.4 x10^3/uL (0.3-0.8) 08/23/22 04:20 Eos # (Auto) 0.1 x10^3/uL (0.0-0.2) 08/23/22 04:20 Baso # (Auto) 0.0 X10^3/uL (0.0-0.1) 08/23/22 04:20 Absolute Nucleated RBC 0.1 /100WBC 08/23/22 04:20 Total Counted 100 08/19/22 04:39 Neutrophils % (Manual) 88 % (39-76) H 08/19/22 04:39 Band Neutrophils % 7 % (0-10) 08/19/22 04:39 Lymphocytes % (Manual) 2 % (13-43) L 08/19/22 04:39 Monocytes % (Manual) 3 % (4-9) L 08/19/22 04:39 Plt Morphology Comment Normal (NORMAL) 08/19/22 04:39 RBC Morphology Normal (NORMAL) 08/19/22 04:39 D-Dimer 0.96 ug/ml (0.0-0.57) H 08/18/22 16:55 Sample Site Rrad 08/19/22 09:10 ABG pH 7.470 (7.35-7.45) H 08/19/22 09:10 ABG pCO2 35.0 mmHg (35.0-45.0) 08/19/22 09:10 ABG pO2 49.0 mmHg (80.0-100.0) L* 08/19/22 09:10 ABG HCO3 25.5 mmol/L (22-26) 08/19/22 09:10 ABG O2 Saturation 87.0 % (90-100) L 08/19/22 09:10 ABG Base Excess 2.0 mmol/L (-2.0-2.0) 08/19/22 09:10 [place] Test Pos 08/19/22 09:10 A-a Gradient 107.0 mmHg 08/19/22 09:10 FiO2 28.0 08/19/22 09:10 Blood Gas Comments Semaj well. [email or web address] 89 08/19/22 09:10 Sodium 138 mmol/L (136-145) 08/23/22 04:20 Corrected Sodium TNP 08/23/22 04:20 Potassium 3.2 mmol/L (3.5-5.1) L 08/23/22 08:46 Chloride 105 mmol/L (98-107) 08/23/22 04:20 Carbon Dioxide 27.7 mmol/L (21-32) 08/23/22 04:20 BUN 8 mg/dL (7-18) 08/23/22 04:20 Creatinine 0.47 mg/dL (0.55-1.02) L 08/23/22 04:20 Est GFR (MDRD) Af Amer > 60 (>60) 08/23/22 04:20 Est GFR (MDRD) Non-Af > 60 (>60) 08/23/22 04:20 Glucose 100 mg/dL (65-99) H 08/23/22 04:20 Lactic Acid 1.0 mmol/L (0.4-2.0) 08/18/22 16:55 Calcium 7.4 mg/dL (8.5-10.1) L 08/23/22 04:20 Corrected Calcium 9.3 mg/dL (8.5-10.1) 08/23/22 04:20 Magnesium 1.7 mg/dL (1.7-2.9) 08/23/22 04:20 Total Bilirubin 0.60 mg/dL (0.2-1.0) 08/23/22 04:20 AST 20 Units/L (15-37) 08/23/22 04:20 ALT 31 Units/L (12-78) 08/23/22 04:20 Alkaline Phosphatase 167 Units/L (46-116) H 08/23/22 04:20 Creatine Kinase 24 Units/L (26-192) L 08/19/22 04:39 Troponin I High Sens 5.6 ng/L (4.0-60.0) 08/19/22 04:39 C-Reactive Protein 137.90 mg/L (0-3.0) H 08/23/22 04:20 B-Natriuretic Peptide 479 pg/mL (0-79) H 08/23/22 04:20 Total Protein 5.5 g/dL (6.4-8.2) L 08/23/22 04:20 Albumin 1.6 g/dL (3.4-5.0) L 08/23/22 04:20 Globulin 3.9 g/dL (2.5-4.5) 08/23/22 04:20 Albumin/Globulin Ratio 0.4 Ratio (1.1-2.1) L 08/23/22 04:20 Specimen Type Clean catch urine 08/18/22 17: Urine Color Yellow (YELLOW) 08/18/22 17:22 Urine Appearance Slightly hazy (CLEAR) 08/18/22 17: Urine pH 6.0 (5.0 - 8.0) 08/18/22 17: Ur Specific [place] 1.010 (1.000-1.030) 08/18/22 17: Urine Protein 1+ (NEGATIVE) 08/18/22 17: Urine Glucose (UA) Negative (NEGATIVE) 08/18/22 17: Urine Ketones Negative (NEGATIVE) 08/18/22 17: Urine Blood Negative (NEGATIVE) 08/18/22 17: Urine Nitrite Negative (NEGATIVE) 08/18/22 17: Urine Bilirubin Negative (NEGATIVE) 08/18/22 17: Urine Urobilinogen 1+ (NORMAL) 08/18/22 17:22 Ur Leukocyte Esterase Negative (NEGATIVE) 08/18/22 17:22 Urine RBC 0-2 /HPF (0-3) 08/18/22 17:22 Urine WBC None seen /HPF (0-5) 08/18/22 17:22 Ur Squamous Epith Cells Few /HPF (NEGATIVE) 08/18/22 17:22 Ur Renal Epithelial Cell Rare /HPF (NEGATIVE) 08/18/22 17:22 Amorphous Sediment 1+ /HPF (NEGATIVE) 08/18/22 17:22 Urine Bacteria Trace /HPF (NEGATIVE) 08/18/22 17:22 Hyaline Casts Rare /LPF (NEGATIVE) 08/18/22 17:22 Ur Culture Indicated? No/not indicated 08/18/22 17:22 SARS-CoV-2 (PCR) Negative (NEGATIVE) 08/18/22 17: HIV-1 RNA copies/mL 13,411 cpy/mL 08/19/22 04:39 HIV-1 RNA (PCR) log10 4.13 log 08/19/22 04:39 HIV-1 RNA (PCR) Interp Detected (Not Detected) H 08/19/22 04:39 Influenza Type A (PCR) Negative (NEGATIVE) 08/18/22 17:22 Influenza Type B (PCR) Negative (NEGATIVE) 08/18/22 17:22 RSV (PCR) Negative (NEGATIVE) 08/18/22 17: Resp Viral Panel (PCR) Cancelled 08/19/22 09:00 - Plan (1) RLL pneumonia Status: Acute Qualifiers: Pneumonia type: due to unspecified organism Qualified Code(s): J18.9 - Pneumonia, unspecified organism Plan: NORMAL SALINE AT 80 ML/HR, CIPRO 400MG IV Q12H, ZOSYN 3.375G IV TID, DUONEBS QID, PULMICORT BID, MUCOMYST IN NEB [place] QID, LOVENOX 40MG SC DAILY, TORADOL 30MG IV Q6H, THE POTASSIUM AND MAGNESIUM PROTOCOLS, ZOFRAN 4MG IV Q8H PRN, NORCO 5/325MG PO Q8H PRN. (2) Empyema lung Status: Acute (3) Hypoxia Status: Acute (4) Acute hypokalemia Status: Acute
[2022-08-23] MEDS: MAGNESIUM SULFATE 1 GRAM/100 mL PREMIX 1 G/100 ML BAG IV PRN ×2 (14:57→16:20)
[2022-08-23] MEDS: TYLENOL 325 MG TAB PO PRN (16:25)
[2022-08-24] MEDS ORDERED: NS 250 ML IV 250 ML IV ONE (03:06)
[2022-08-24] MEDS ORDERED: NS 250 ML IV 250 ML IV PRN (03:17)
[2022-08-24] MEDS: TORADOL 30 MG VIAL IVP SCH ×3 (04:08→16:59)
[2022-08-24] MEDS: ZOSYN VIAL 3.375 GRAMS 3.375 G in NS 100 ML IV 100 ML IV SCH ×3 (05:19→21:05)
[2022-08-24 05:20] LABS: BASOPHILS % (AUTO) 0.5 % (0.2-1.0); EOSINOPHILS # (AUTO) 0.1 x10^3/uL (0.0-0.2); EOSINOPHILS % (AUTO) 1.8 % (0.9-2.9); HEMATOCRIT 23.5 % (36.0-47.0); LYMPHOCYTES # (AUTO) 0.3 X10^3/uL (1.3-2.9); LYMPHOCYTES % (AUTO) 8.9 % (21.0-51.0); MEAN CORPUSCULAR HEMOGLOBIN 26.4 pg (27.0-34.0); MEAN CORPUSCULAR HGB CONC 34.1 g/dL (33.0-35.0); MEAN CORPUSCULAR VOLUME 77.2 fL (80.0-100.0); MEAN PLATELET VOLUME 7.6 fL (7.4-11.0); MONOCYTES # (AUTO) 0.3 x10^3/uL (0.3-0.8); MONOCYTES % (AUTO) 8.9 % (0.0-13.0); NEUTROPHILS # (AUTO) 2.9 x10^3/uL (2.2-4.8); NEUTROPHILS % (AUTO) 79.9 % (42.0-75.0); RED BLOOD COUNT 3.04 X10^6/uL (3.5-5.4); RED CELL DISTRIBUTION WIDTH 15.2 % (11.6-16.5); WHITE BLOOD COUNT 3.6 X10^3/uL (3.6-10.0)
[2022-08-24 05:36] LABS: ALANINE AMINOTRANSFERASE 28 Units/L (12-78); ALBUMIN 1.7 g/dL (3.4-5.0); ALKALINE PHOSPHATASE 176 Units/L (46-116); ASPARTATE AMINO TRANSFERASE 24 Units/L (15-37); BLOOD UREA NITROGEN 7 mg/dL (7-18); CALCIUM 7.6 mg/dL (8.5-10.1); CARBON DIOXIDE 28.1 mmol/L (21-32); CHLORIDE 106 mmol/L (98-107); COR CA(FOR HYPOALB) 9.4 mg/dL (8.5-10.1); MAGNESIUM 1.7 mg/dL (1.7-2.9); SODIUM 138 mmol/L (136-145); TOTAL PROTEIN 5.7 g/dL (6.4-8.2); eGFR NON BLACK RACES > 60 (>60)
--- NOTE | 2022-08-24 07:07 | RAD ---
HISTORYRLL PNEUMONA; SOBSTUDYCHEST, 1 [id number]/2022.TECHNIQUEAP view of the chestFINDINGSStable silhouetting of the right heart border. Similar appearing opacification of the right mid to lower lung. Blunted left costophrenic sulcus. No pneumothorax. Soft tissue attenuation limits evaluation.IMPRESSIONNo significant change compared to prior radiograph.Electronically signed by: Wei Linares (Aug 24, 2022 07:05:35)
[2022-08-24] MEDS: MUCOMYST 20% 200 MG/ML NEB SCH ×5 (08:45→21:03)
[2022-08-24] MEDS: PULMICORT NEB TX 0.5 MG NEB SCH ×2 (08:45→21:03)
[2022-08-24] MEDS: DUONEB 0.5 MG/3 MG (3 mL) NEB SCH ×5 (09:00→21:04)
[2022-08-24] MEDS: CIPRO IV 400 MG PREMIX* 400 MG/200 ML IV.SOLN. IV SCH ×2 (11:49→20:41)
[2022-08-24] MEDS: LOVENOX INJ 40 MG SYR SC SCH (11:51)
--- NOTE | 2022-08-24 12:06 | PCM.PROG ---
Progress Note - Progress Note for Day of Date of Exam: 08/23/22 - Subjective Subjective: WAS ADMITTED TO THE HOSPITAL FOR TREATMENT OF RIGHT LOWER LOBE PNEUMONIA, EMPYEMA, HYPOXIA, AND RIGHT PLEURAL EFFUSION. TODAY, SHE IS ALERT AND ORIENTED, SITTING UP IN BED ON MORNING ROUNDS. SHE CONTINUES WITH COMPLAINTS OF SHORTNESS OF BREATH AT TIMES, BUT OVERALL, SHE REPORTS SLIGHT IMPROVEMENT. SHE REPORTS IMPROVEMENT IN PAIN. HER OXYGEN SATURATIONS DO DROP INTO THE 80s WHEN SHE IS AMULATING TO THE BATHROOM ON ROOM AIR, HOWEVER, WHEN BACK IN BED AND ON OXYGEN, SATURATION INCREASE TO THE 90s. SHE HAS BEEN AFEBRILE THROUGHOUT THE NIGHT. HER VITALS THIS MORNING ARE: 98.4-95-27-99%-113/67. SHE IS CURRENTLY UTILIZING NASAL CANNULA AT 2 LPM. LABS WERE OBTAINED. WBC 4.1, RBC 3 .06, HGB 8.1, HCT 23.6, SODIUM 138, POTASSIUM 3.4, CHLORIDE 105, BUN 8, CREATININE 0.47, GLUCOSE 100, CALCIUM 7.4, MAGNESIUM 1.7, AST 20, ALT 31, ALK PHOS 167, CRP 137.90, BNP 479, TOTAL PROTEIN 5.5, ALBUMIN 1.6. SPUTUM CULTURES ARE POSITIVE FOR STREPTOCOCCUS PNEUMONIAE. RESPIRATORY VIRAL PANEL ALSO REVEALED PRESENCE OF STAPHYLOCOCCUS AUREUS AND STREPTOCOCCUS PNEUMONIAE. A CHEST XRAY WAS REPEATED AND REVEALED: Partial silhouetting of the right heart border. Similar appearing moderate right pleural effusion with associated opacity on the right. Small left pleural effusion with associated opacity at the left base. No pneumothorax. Soft tissue attenuation limits evaluation. SHE IS CURRENTLY REC EIVING NORMAL SALINE AT 80 ML/HR, CIPRO 400MG IV Q12H, ZOSYN 3.375G IV TID, DUONEBS QID, PULMICORT BID, LOVENOX 40MG SC DAILY, TORADOL 30MG IV Q6H, THE POTASSIUM AND MAGNESIUM PROTOCOLS, ZOFRAN 4MG IV Q8H PRN, NORCO 5/325MG PO Q8H PRN. WE WILL ADD MUCOMYST TO HER NEB TX QID TODAY. WE WILL DO A FOLLOW-UP CHEST CT WITH CONTRAST TOMORROW TO ASSESS EMPYEMA. OTHERWISE, WE PLAN TO FOLLOW-UP WITH AM LABS AND CHEST XRAY AND CONTINUE TO MONITOR. TIME SPENT ON CLINICAL ASSESSMENT, REVIEWING LABS AND IMAGING, DECISION MAKING, AND DOCUMENTATION GREATER THAN 45 MINUTES. - Past Medical Family Social History Past Med/Fam/Surg Hx: No changes since H&P Allergies: Allergies morphine Allergy (Verified 05/07/18 17:40) - Review of Systems ROS: No change since H&P - Vital Signs and I&O's Vital Signs: Temperature 98.1 F Pulse Rate [Apical] 126 Pulse Rate 76 Respiratory Rate 24 Blood Pressure [Right Arm] 108/65 Blood Pressure [Left Arm] 97/53 Blood Pressure 123/74 O2 Sat by Pulse Oximetry 96 Intake and Output: Intake & Output 08/22/22 08/23/22 08/24/22 08/25/22 11:59 11:59 11:59 11:59 Intake Total 2600 / 2600 4141 / 4141 3160 / 3160 Balance 2600 / 2600 4141 / 4141 3160 / 3160 - Physical Exam Oriented: Normal Eyes: Normal Ear: Normal Nose: Normal Throat: Normal Respiratory: Generalized, Diminished Cardiovascular: Normal : Normal Auscultation: Bowel Sounds: Normal Palpation: Normal Tenderness: Normal Skin: Normal Musculoskeletal: Right (RIGHT SIDE RIB PAIN ) Psychiatric: Normal Mood Description: Calm Affect: Normal Speech Pattern: Clear - Laboratory and Diagnostics Result Diagrams: 08/24/22 04:10 08/24/22 04:10 Labs: 08/18/22 17:03 Blood Blood Culture - Final 08/18/22 16:55 Blood Blood Culture - Final 08/19/22 02:32 Sputum - Expectorated Sputum Sputum Culture - Final Streptococcus Pneumoniae 08/19/22 02:32 Sputum - Expectorated Sputum - Final Laboratory WBC 3.6 X10^3/uL (3.6-10.0) 08/24/22 04:10 RBC 3.04 X10^6/uL (3.5-5.4) L 08/24/22 04:10 Hgb 8.0 g/dL (12.0-16.0) L 08/24/22 04:10 Hct 23.5 % (36.0-47.0) L 08/24/22 04:10 MCV 77.2 fL (80.0-100.0) L 08/24/22 04:10 MCH 26.4 pg (27.0-34.0) L 08/24/22 04:10 MCHC 34.1 g/dL (33.0-35.0) 08/24/22 04:10 RDW 15.2 % (11.6-16.5) 08/24/22 04:10 Plt Count 266 X10^3/uL (150.0-450.0) 08/24/22 04:10 Plt Count Comment Adequate (ADEQUATE) 08/19/22 04:39 MPV 7.6 fL (7.4-11.0) 08/24/22 04:10 Neut % (Auto) 79.9 % (42.0-75.0) H 08/24/22 04:10 Lymph % (Auto) 8.9 % (21.0-51.0) L 08/24/22 04:10 Harris % (Auto) 8.9 % (0.0-13.0) 08/24/22 04:10 Eos % (Auto) 1.8 % (0.9-2.9) 08/24/22 04:10 Baso % (Auto) 0.5 % (0.2-1.0) 08/24/22 04:10 Neut # (Auto) 2.9 x10^3/uL (2.2-4.8) 08/24/22 04:10 Lymph # (Auto) 0.3 X10^3/uL (1.3-2.9) L 08/24/22 04:10 Harris # (Auto) 0.3 x10^3/uL (0.3-0.8) 08/24/22 04:10 Eos # (Auto) 0.1 x10^3/uL (0.0-0.2) 08/24/22 04:10 Baso # (Auto) 0.0 X10^3/uL (0.0-0.1) 08/24/22 04:10 Absolute Nucleated RBC 0.0 /100WBC 08/24/22 04:10 Total Counted 100 08/19/22 04:39 Neutrophils % (Manual) 88 % (39-76) H 08/19/22 04:39 Band Neutrophils % 7 % (0-10) 08/19/22 04:39 Lymphocytes % (Manual) 2 % (13-43) L 08/19/22 04:39 Monocytes % (Manual) 3 % (4-9) L 08/19/22 04:39 Plt Morphology Comment Normal (NORMAL) 08/19/22 04:39 RBC Morphology Normal (NORMAL) 08/19/22 04:39 D-Dimer 0.96 ug/ml (0.0-0.57) H 08/18/22 16:55 Sample Site Rrad 08/19/22 09:10 ABG pH 7.470 (7.35-7.45) H 08/19/22 09:10 ABG pCO2 35.0 mmHg (35.0-45.0) 08/19/22 09:10 ABG pO2 49.0 mmHg (80.0-100.0) L* 08/19/22 09:10 ABG HCO3 25.5 mmol/L (22-26) 08/19/22 09:10 ABG O2 Saturation 87.0 % (90-100) L 08/19/22 09:10 ABG Base Excess 2.0 mmol/L (-2.0-2.0) 08/19/22 09:10 Abelardo Test Pos 08/19/22 09:10 A-a Gradient 107.0 mmHg 08/19/22 09:10 FiO2 28.0 08/19/22 09:10 Blood Gas Comments Semaj well. [email or web address] 89 08/19/22 09:10 Sodium 138 mmol/L (136-145) 08/24/22 04:10 Corrected Sodium TNP 08/24/22 04:10 Potassium 4.0 mmol/L (3.5-5.1) 08/24/22 04:10 Chloride 106 mmol/L (98-107) 08/24/22 04:10 Carbon Dioxide 28.1 mmol/L (21-32) 08/24/22 04:10 BUN 7 mg/dL (7-18) 08/24/22 04:10 Creatinine 0.50 mg/dL (0.55-1.02) L 08/24/22 04:10 Est GFR (MDRD) Af Amer > 60 (>60) 08/24/22 04:10 Est GFR (MDRD) Non-Af > 60 (>60) 08/24/22 04:10 Glucose 92 mg/dL (65-99) 08/24/22 04:10 Lactic Acid 1.0 mmol/L (0.4-2.0) 08/18/22 16:55 Calcium 7.6 mg/dL (8.5-10.1) L 08/24/22 04:10 Corrected Calcium 9.4 mg/dL (8.5-10.1) 08/24/22 04:10 Magnesium 1.7 mg/dL (1.7-2.9) 08/24/22 04:10 Total Bilirubin 0.60 mg/dL (0.2-1.0) 08/24/22 04:10 AST 24 Units/L (15-37) 08/24/22 04:10 ALT 28 Units/L (12-78) 08/24/22 04:10 Alkaline Phosphatase 176 Units/L (46-116) H 08/24/22 04:10 Creatine Kinase 24 Units/L (26-192) L 08/19/22 04:39 Troponin I High Sens 5.6 ng/L (4.0-60.0) 08/19/22 04:39 C-Reactive Protein 117.70 mg/L (0-3.0) H 08/24/22 04:10 B-Natriuretic Peptide 525 pg/mL (0-79) H* 08/24/22 04:10 Total Protein 5.7 g/dL (6.4-8.2) L 08/24/22 04:10 Albumin 1.7 g/dL (3.4-5.0) L 08/24/22 04:10 Globulin 4.0 g/dL (2.5-4.5) 08/24/22 04:10 Albumin/Globulin Ratio 0.4 Ratio (1.1-2.1) L 08/24/22 04:10 Specimen Type Clean catch urine 08/18/22 17: Urine Color Yellow (YELLOW) 08/18/22 17:22 Urine Appearance Slightly hazy (CLEAR) 08/18/22 17:22 Urine pH 6.0 (5.0 - 8.0) 08/18/22 17: Ur Specific [place] 1.010 (1.000-1.030) 08/18/22 17:22 Urine Protein 1+ (NEGATIVE) 08/18/22 17:22 Urine Glucose (UA) Negative (NEGATIVE) 08/18/22 17:22 Urine Ketones Negative (NEGATIVE) 08/18/22 17:22 Urine Blood Negative (NEGATIVE) 08/18/22 17:22 Urine Nitrite Negative (NEGATIVE) 08/18/22 17:22 Urine Bilirubin Negative (NEGATIVE) 08/18/22 17:22 Urine Urobilinogen 1+ (NORMAL) 08/18/22 17:22 Ur Leukocyte Esterase Negative (NEGATIVE) 08/18/22 17:22 Urine RBC 0-2 /HPF (0-3) 08/18/22 17:22 Urine WBC None seen /HPF (0-5) 08/18/22 17:22 Ur Squamous Epith Cells Few /HPF (NEGATIVE) 08/18/22 17:22 Ur Renal Epithelial Cell Rare /HPF (NEGATIVE) 08/18/22 17: Amorphous Sediment 1+ /HPF (NEGATIVE) 08/18/22 17: Urine Bacteria Trace /HPF (NEGATIVE) 08/18/22 17: Hyaline Casts Rare /LPF (NEGATIVE) 08/18/22 17:22 Ur Culture Indicated? No/not indicated 08/18/22 17:22 SARS-CoV-2 (PCR) Negative (NEGATIVE) 08/18/22 17:22 HIV-1 RNA copies/mL 13,411 cpy/mL 08/19/22 04:39 HIV-1 RNA (PCR) log10 4.13 log 08/19/22 04:39 HIV-1 RNA (PCR) Interp Detected (Not Detected) H 08/19/22 04:39 Influenza Type A (PCR) Negative (NEGATIVE) 08/18/22 17:22 Influenza Type B (PCR) Negative (NEGATIVE) 08/18/22 17:22 RSV (PCR) Negative (NEGATIVE) 08/18/22 17:22 Resp Viral Panel (PCR) Cancelled 08/19/22 09:00 - Plan (1) RLL pneumonia Status: Acute Qualifiers: Pneumonia type: due to unspecified organism Qualified Code(s): J18.9 - Pneumonia, unspecified organism Plan: NORMAL SALINE AT 80 ML/HR, CIPRO 400MG IV Q12H, ZOSYN 3.375G IV TID, DUONEBS QID, PULMICORT BID, MUCOMYST IN NEB [place] QID, LOVENOX 40MG SC DAILY, TORADOL 30MG IV Q6H, THE POTASSIUM AND MAGNESIUM PROTOCOLS, ZOFRAN 4MG IV Q8H PRN, NORCO 5/325MG PO Q8H PRN. (2) Empyema lung Status: Acute (3) Hypoxia Status: Acute (4) Acute hypokalemia Status: Acute
--- NOTE | 2022-08-24 12:15 | PCM.PROG ---
Progress Note - Progress Note for Day of Date of Exam: 08/24/22 - Subjective Subjective: WAS ADMITTED TO THE HOSPITAL FOR TREATMENT OF RIGHT LOWER LOBE PNEUMONIA, EMPYEMA, HYPOXIA, AND RIGHT PLEURAL EFFUSION. TODAY, SHE IS ALERT AND ORIENTED, SITTING UP IN BED ON MORNING ROUNDS. SHE CONTINUES WITH COMPLAINTS OF SHORTNESS OF BREATH AT TIMES, BUT OVERALL, SHE REPORTS SLIGHT IMPROVEMENT. SHE REPORTS IMPROVEMENT IN PAIN. HER OXYGEN SATURATIONS CONTINUE TO DROP INTO THE 80s WHEN SHE IS AMULATING IN THE ROOM ON ROOM AIR, HOWEVER, WHEN BACK IN BED AND ON OXYGEN, SATURATION INCREASE TO THE 90s. SHE HAS BEEN AFEBRILE THROUGHOUT THE NIGHT. HER VITALS THIS MORNING ARE: 98.1-72-36-96%-123/74. SHE IS CURRENTLY UTILIZING NASAL CANNULA AT 2 LPM. LABS WERE OBTAINED. WBC 3.6, RBC 3.04, HGB 8.0, HCT 23.5, SODIUM 138, POTASSIUM 4.0, CHLORIDE 106, BUN 7, CALCIUM 0.50, GLUCOSE 92, CALCIUM 7.6, MAGNESIUM 1.7, AST 24, ALT 28, ALK PHOS 176, CRP 117.70, BNP 525, TOTAL PROTEIN 5.7, ALBUMIN 1.7. SPUTUM CULTURES ARE POSITIVE FOR STREPTOCOCCUS PNEUMONIAE. RESPIRATORY VIRAL PANEL ALSO REVEALED PRESENCE OF STAPHYLOCOCCUS AUREUS AND STREPTOCOCCUS PNEUMONIAE. A CHEST XRAY WAS REPEATED AND REVEALED: Stable silhouetting of the right heart border. Similar appearing opacification of the right mid to lower lung. Blunted left costophrenic sulcus. No pneumothorax. Soft tissue attenuation limits evaluation. SHE IS CURRENTLY RECEIVING NORMAL SALINE AT 80 ML/HR, CIPRO 400MG IV Q12H, ZOSYN 3.375G IV TID, DUONEBS QID, PULMICORT BID, LOVENOX 40MG SC DAILY, TORADOL 30MG IV Q6H, THE POTASSIUM AND MAGNESIUM PROTOCOLS, ZOFRAN 4MG IV Q8H PRN, NORCO 5/325MG PO Q8H PRN. WE WILL ADD MUCOMYST TO HER NEB TX QID TODAY. SHE IS SCHEDULED FOR A FOLLOW-UP CHEST CT WITH CONTRAST TODAY TO ASSESS EMPYEMA. OTHERWISE, WE PLAN TO FOLLOW-UP WITH AM LABS AND CHEST XRAY AND CONTINUE TO MONITOR. TIME SPENT ON CLINICAL ASSESSMENT, REVIEWING LABS AND IMAGING, DECISION MAKING, AND DOCUMENTATION GREATER THAN 45 MINUTES. - Past Medical Family Social History Past Med/Fam/Surg Hx: No changes since H&P Allergies: Allergies morphine Allergy (Verified 05/07/18 17:40) - Review of Systems ROS: No change since H&P - Vital Signs and I&O's Vital Signs: Temperature 98.1 F Pulse Rate [Apical] 126 Pulse Rate 76 Respiratory Rate 24 Blood Pressure [Right Arm] 108/65 Blood Pressure [Left Arm] 97/53 Blood Pressure 123/74 O2 Sat by Pulse Oximetry 96 Intake and Output: Intake & Output 08/22/22 08/23/22 08/24/22 08/25/22 11:59 11:59 11:59 11:59 Intake Total 2600 / 2600 4141 / 4141 3160 / 3160 Balance 2600 / 2600 4141 / 4141 3160 / 3160 - Physical Exam Oriented: Normal Eyes: Normal Ear: Normal Nose: Normal Throat: Normal Respiratory: Generalized, Diminished Cardiovascular: Normal : Normal Auscultation: Bowel Sounds: Normal Palpation: Normal Tenderness: Normal Skin: Normal Musculoskeletal: Right (RIGHT SIDE RIB PAIN ) Psychiatric: Normal Mood Description: Calm Affect: Normal Speech Pattern: Clear - Laboratory and Diagnostics Result Diagrams: 08/24/22 04:10 08/24/22 04:10 Labs: 08/18/22 17:03 Blood Blood Culture - Final 08/18/22 16:55 Blood Blood Culture - Final 08/19/22 02:32 Sputum - Expectorated Sputum Sputum Culture - Final Streptococcus Pneumoniae 08/19/22 02:32 Sputum - Expectorated Sputum - Final Laboratory WBC 3.6 X10^3/uL (3.6-10.0) 08/24/22 04:10 RBC 3.04 X10^6/uL (3.5-5.4) L 08/24/22 04:10 Hgb 8.0 g/dL (12.0-16.0) L 08/24/22 04:10 Hct 23.5 % (36.0-47.0) L 08/24/22 04:10 MCV 77.2 fL (80.0-100.0) L 08/24/22 04:10 MCH 26.4 pg (27.0-34.0) L 08/24/22 04:10 MCHC 34.1 g/dL (33.0-35.0) 08/24/22 04:10 RDW 15.2 % (11.6-16.5) 08/24/22 04:10 Plt Count 266 X10^3/uL (150.0-450.0) 08/24/22 04:10 Plt Count Comment Adequate (ADEQUATE) 08/19/22 04:39 MPV 7.6 fL (7.4-11.0) 08/24/22 04:10 Neut % (Auto) 79.9 % (42.0-75.0) H 08/24/22 04:10 Lymph % (Auto) 8.9 % (21.0-51.0) L 08/24/22 04:10 Chambers % (Auto) 8.9 % (0.0-13.0) 08/24/22 04:10 Eos % (Auto) 1.8 % (0.9-2.9) 08/24/22 04:10 Baso % (Auto) 0.5 % (0.2-1.0) 08/24/22 04:10 Neut # (Auto) 2.9 x10^3/uL (2.2-4.8) 08/24/22 04:10 Lymph # (Auto) 0.3 X10^3/uL (1.3-2.9) L 08/24/22 04:10 Chambers # (Auto) 0.3 x10^3/uL (0.3-0.8) 08/24/22 04:10 Eos # (Auto) 0.1 x10^3/uL (0.0-0.2) 08/24/22 04:10 Baso # (Auto) 0.0 X10^3/uL (0.0-0.1) 08/24/22 04:10 Absolute Nucleated RBC 0.0 /100WBC 08/24/22 04:10 Total Counted 100 08/19/22 04:39 Neutrophils % (Manual) 88 % (39-76) H 08/19/22 04:39 Band Neutrophils % 7 % (0-10) 08/19/22 04:39 Lymphocytes % (Manual) 2 % (13-43) L 08/19/22 04:39 Monocytes % (Manual) 3 % (4-9) L 08/19/22 04:39 Plt Morphology Comment Normal (NORMAL) 08/19/22 04:39 RBC Morphology Normal (NORMAL) 08/19/22 04:39 D-Dimer 0.96 ug/ml (0.0-0.57) H 08/18/22 16:55 Sample Site Rrad 08/19/22 09:10 ABG pH 7.470 (7.35-7.45) H 08/19/22 09:10 ABG pCO2 35.0 mmHg (35.0-45.0) 08/19/22 09:10 ABG pO2 49.0 mmHg (80.0-100.0) L* 08/19/22 09:10 ABG HCO3 25.5 mmol/L (22-26) 08/19/22 09:10 ABG O2 Saturation 87.0 % (90-100) L 08/19/22 09:10 ABG Base Excess 2.0 mmol/L (-2.0-2.0) 08/19/22 09:10 Abelardo Test Pos 08/19/22 09:10 A-a Gradient 107.0 mmHg 08/19/22 09:10 FiO2 28.0 08/19/22 09:10 Blood Gas Comments Semaj well. [email or web address] 89 08/19/22 09:10 Sodium 138 mmol/L (136-145) 08/24/22 04:10 Corrected Sodium TNP 08/24/22 04:10 Potassium 4.0 mmol/L (3.5-5.1) 08/24/22 04:10 Chloride 106 mmol/L (98-107) 08/24/22 04:10 Carbon Dioxide 28.1 mmol/L (21-32) 08/24/22 04:10 BUN 7 mg/dL (7-18) 08/24/22 04:10 Creatinine 0.50 mg/dL (0.55-1.02) L 08/24/22 04:10 Est GFR (MDRD) Af Amer > 60 (>60) 08/24/22 04:10 Est GFR (MDRD) Non-Af > 60 (>60) 08/24/22 04:10 Glucose 92 mg/dL (65-99) 08/24/22 04:10 Lactic Acid 1.0 mmol/L (0.4-2.0) 08/18/22 16:55 Calcium 7.6 mg/dL (8.5-10.1) L 08/24/22 04:10 Corrected Calcium 9.4 mg/dL (8.5-10.1) 08/24/22 04:10 Magnesium 1.7 mg/dL (1.7-2.9) 08/24/22 04:10 Total Bilirubin 0.60 mg/dL (0.2-1.0) 08/24/22 04:10 AST 24 Units/L (15-37) 08/24/22 04:10 ALT 28 Units/L (12-78) 08/24/22 04:10 Alkaline Phosphatase 176 Units/L (46-116) H 08/24/22 04:10 Creatine Kinase 24 Units/L (26-192) L 08/19/22 04:39 Troponin I High Sens 5.6 ng/L (4.0-60.0) 08/19/22 04:39 C-Reactive Protein 117.70 mg/L (0-3.0) H 08/24/22 04:10 B-Natriuretic Peptide 525 pg/mL (0-79) H* 08/24/22 04:10 Total Protein 5.7 g/dL (6.4-8.2) L 08/24/22 04:10 Albumin 1.7 g/dL (3.4-5.0) L 08/24/22 04:10 Globulin 4.0 g/dL (2.5-4.5) 08/24/22 04:10 Albumin/Globulin Ratio 0.4 Ratio (1.1-2.1) L 08/24/22 04:10 Specimen Type Clean catch urine 08/18/22 17: Urine Color Yellow (YELLOW) 08/18/22 17: Urine Appearance Slightly hazy (CLEAR) 08/18/22 17: Urine pH 6.0 (5.0 - 8.0) 08/18/22 17: Ur Specific [place] 1.010 (1.000-1.030) 08/18/22 17: Urine Protein 1+ (NEGATIVE) 08/18/22 17: Urine Glucose (UA) Negative (NEGATIVE) 08/18/22 17: Urine Ketones Negative (NEGATIVE) 08/18/22 17: Urine Blood Negative (NEGATIVE) 08/18/22 17: Urine Nitrite Negative (NEGATIVE) 08/18/22 17: Urine Bilirubin Negative (NEGATIVE) 08/18/22 17:22 Urine Urobilinogen 1+ (NORMAL) 08/18/22 17: Ur Leukocyte Esterase Negative (NEGATIVE) 08/18/22 17: Urine RBC 0-2 /HPF (0-3) 08/18/22 17:22 Urine WBC None seen /HPF (0-5) 08/18/22 17: Ur Squamous Epith Cells Few /HPF (NEGATIVE) 08/18/22 17: Ur Renal Epithelial Cell Rare /HPF (NEGATIVE) 08/18/22 17: Amorphous Sediment 1+ /HPF (NEGATIVE) 08/18/22 17:22 Urine Bacteria Trace /HPF (NEGATIVE) 08/18/22 17: Hyaline Casts Rare /LPF (NEGATIVE) 08/18/22 17: Ur Culture Indicated? No/not indicated 08/18/22 17:22 SARS-CoV-2 (PCR) Negative (NEGATIVE) 08/18/22 17:22 HIV-1 RNA copies/mL 13,411 cpy/mL 08/19/22 04:39 HIV-1 RNA (PCR) log10 4.13 log 08/19/22 04:39 HIV-1 RNA (PCR) Interp Detected (Not Detected) H 08/19/22 04:39 Influenza Type A (PCR) Negative (NEGATIVE) 08/18/22 17: Influenza Type B (PCR) Negative (NEGATIVE) 08/18/22 17:22 RSV (PCR) Negative (NEGATIVE) 08/18/22 17:22 Resp Viral Panel (PCR) Cancelled 08/19/22 09:00 - Plan (1) RLL pneumonia Status: Acute Qualifiers: Pneumonia type: due to unspecified organism Qualified Code(s): J18.9 - Pneumonia, unspecified organism Plan: NORMAL SALINE AT 80 ML/HR, CIPRO 400MG IV Q12H, ZOSYN 3.375G IV TID, DUONEBS QID, PULMICORT BID, MUCOMYST IN NEB [place] QID, LOVENOX 40MG SC DAILY, TORADOL 30MG IV Q6H, THE POTASSIUM AND MAGNESIUM PROTOCOLS, ZOFRAN 4MG IV Q8H PRN, NORCO 5/325MG PO Q8H PRN. (2) Empyema lung Status: Acute (3) Hypoxia Status: Acute (4) Acute hypokalemia Status: Acute
[2022-08-24] MEDS: NS 1,000 ML IV 1,000 ML IV SCH ×2 (13:07→20:44)
[2022-08-24] MEDS: TYLENOL 325 MG TAB PO PRN (20:20)
[2022-08-25 05:00] LABS: BASOPHILS % (AUTO) 0.4 % (0.2-1.0); EOSINOPHILS # (AUTO) 0.1 x10^3/uL (0.0-0.2); EOSINOPHILS % (AUTO) 2.7 % (0.9-2.9); HEMATOCRIT 24.8 % (36.0-47.0); HEMOGLOBIN 8.4 g/dL (12.0-16.0); LYMPHOCYTES # (AUTO) 0.4 X10^3/uL (1.3-2.9); LYMPHOCYTES % (AUTO) 14.2 % (21.0-51.0); MEAN CORPUSCULAR HEMOGLOBIN 26.2 pg (27.0-34.0); MEAN CORPUSCULAR VOLUME 77.1 fL (80.0-100.0); MEAN PLATELET VOLUME 7.4 fL (7.4-11.0); MONOCYTES # (AUTO) 0.3 x10^3/uL (0.3-0.8); MONOCYTES % (AUTO) 10.4 % (0.0-13.0); NEUTROPHILS # (AUTO) 1.9 x10^3/uL (2.2-4.8); NEUTROPHILS % (AUTO) 72.3 % (42.0-75.0); RED BLOOD COUNT 3.21 X10^6/uL (3.5-5.4); RED CELL DISTRIBUTION WIDTH 15.3 % (11.6-16.5); WHITE BLOOD COUNT 2.7 X10^3/uL (3.6-10.0)
[2022-08-25 05:11] LABS: ALANINE AMINOTRANSFERASE 28 Units/L (12-78); ALBUMIN 1.9 g/dL (3.4-5.0); ALKALINE PHOSPHATASE 186 Units/L (46-116); ASPARTATE AMINO TRANSFERASE 20 Units/L (15-37); BLOOD UREA NITROGEN 6 mg/dL (7-18); CALCIUM 7.8 mg/dL (8.5-10.1); CARBON DIOXIDE 28.9 mmol/L (21-32); CHLORIDE 102 mmol/L (98-107); COR CA(FOR HYPOALB) 9.5 mg/dL (8.5-10.1); CREATININE 0.58 mg/dL (0.55-1.02); SODIUM 137 mmol/L (136-145); TOTAL PROTEIN 6.2 g/dL (6.4-8.2); eGFR NON BLACK RACES > 60 (>60)
[2022-08-25] MEDS: ZOSYN VIAL 3.375 GRAMS 3.375 G in NS 100 ML IV 100 ML IV SCH ×3 (05:35→21:09)
[2022-08-25] MEDS: MAGNESIUM SULFATE 1 GRAM/100 mL PREMIX 1 G/100 ML BAG IV PRN ×2 (05:52→10:13)
--- NOTE | 2022-08-25 07:53 | RAD ---
HISTORYRLL PNEUMONIA; SOBSTUDYCHEST, 1 [id number]/2022.TECHNIQUEAP view of the chestFINDINGSThe cardiac and mediastinal contours appear stable. Similar appearing opacification of the right mid to lower lung. Blunted left costophrenic sulcus. No pneumothorax.IMPRESSIONNo significant change compared to prior radiograph.Electronically signed by: Wei Linares (Aug 25, 2022 07:51:28)
[2022-08-25] MEDS: DUONEB 0.5 MG/3 MG (3 mL) NEB SCH ×4 (08:29→21:08)
[2022-08-25] MEDS: MUCOMYST 20% 200 MG/ML NEB SCH ×4 (08:30→21:08)
[2022-08-25] MEDS: PULMICORT NEB TX 0.5 MG NEB SCH ×2 (08:30→21:08)
[2022-08-25] MEDS: CIPRO IV 400 MG PREMIX* 400 MG/200 ML IV.SOLN. IV SCH ×2 (08:40→20:40)
[2022-08-25] MEDS: LOVENOX INJ 40 MG SYR SC SCH (08:40)
[2022-08-25 13:24] LABS: ABG BASE EXCESS 7.2 mmol/L (-2.0-2.0); ABG HCO3 29.5 mmol/L (22-26)
[2022-08-25 13:25] LABS: ABG ALLEN TEST POS
[2022-08-25] MEDS: NS 1,000 ML IV 1,000 ML IV SCH (17:15)
[2022-08-25] MEDS: TYLENOL 325 MG TAB PO PRN (20:05)
[2022-08-26] MEDS: NS 1,000 ML IV 1,000 ML IV SCH (00:20)
[2022-08-26] MEDS: TYLENOL 325 MG TAB PO PRN ×2 (02:50→12:48)
[2022-08-26] MEDS: ZOSYN VIAL 3.375 GRAMS 3.375 G in NS 100 ML IV 100 ML IV SCH (05:12)
[2022-08-26 05:32] LABS: BASOPHILS % (AUTO) 0.2 % (0.2-1.0); EOSINOPHILS # (AUTO) 0.1 x10^3/uL (0.0-0.2); EOSINOPHILS % (AUTO) 2.1 % (0.9-2.9); HEMATOCRIT 24.9 % (36.0-47.0); HEMOGLOBIN 8.4 g/dL (12.0-16.0); LYMPHOCYTES # (AUTO) 0.4 X10^3/uL (1.3-2.9); LYMPHOCYTES % (AUTO) 11.3 % (21.0-51.0); MEAN CORPUSCULAR HEMOGLOBIN 26.1 pg (27.0-34.0); MEAN CORPUSCULAR HGB CONC 33.9 g/dL (33.0-35.0); MEAN CORPUSCULAR VOLUME 76.8 fL (80.0-100.0); MEAN PLATELET VOLUME 7.2 fL (7.4-11.0); MONOCYTES # (AUTO) 0.4 x10^3/uL (0.3-0.8); MONOCYTES % (AUTO) 11.2 % (0.0-13.0); NEUTROPHILS # (AUTO) 2.5 x10^3/uL (2.2-4.8); NEUTROPHILS % (AUTO) 75.2 % (42.0-75.0); RED BLOOD COUNT 3.24 X10^6/uL (3.5-5.4); RED CELL DISTRIBUTION WIDTH 14.8 % (11.6-16.5); WHITE BLOOD COUNT 3.3 X10^3/uL (3.6-10.0)
[2022-08-26 05:50] LABS: ALANINE AMINOTRANSFERASE 30 Units/L (12-78); ALBUMIN 1.9 g/dL (3.4-5.0); ALKALINE PHOSPHATASE 184 Units/L (46-116); ASPARTATE AMINO TRANSFERASE 22 Units/L (15-37); BLOOD UREA NITROGEN 5 mg/dL (7-18); CALCIUM 7.8 mg/dL (8.5-10.1); CARBON DIOXIDE 25.5 mmol/L (21-32); CHLORIDE 105 mmol/L (98-107); COR CA(FOR HYPOALB) 9.5 mg/dL (8.5-10.1); CREATININE 0.52 mg/dL (0.55-1.02); SODIUM 138 mmol/L (136-145); TOTAL PROTEIN 6.4 g/dL (6.4-8.2); eGFR NON BLACK RACES > 60 (>60)
[2022-08-26] MEDS: DUONEB 0.5 MG/3 MG (3 mL) NEB SCH (08:31)
[2022-08-26] MEDS: MUCOMYST 20% 200 MG/ML NEB SCH (08:32)
[2022-08-26] MEDS: PULMICORT NEB TX 0.5 MG NEB SCH (08:32)
[2022-08-26] MEDS: CIPRO IV 400 MG PREMIX* 400 MG/200 ML IV.SOLN. IV SCH (08:58)
[2022-08-26] MEDS: LOVENOX INJ 40 MG SYR SC SCH ×2 (08:58→09:02)
[2022-08-26 12:32] VITALS: BP 116/73
== END 2022-08-26 13:10 | disposition home or self-care (01) | DRG 974 ==
LOC: ER 15:51 → ICU 22:00
PROVIDERS: ADMIT Family Medicine; ATTEND Internal Medicine
DX: J86.9 Pyothorax without fistula; B95.61 Methicillin susceptible Staphylococcus aureus infection as the cause of diseases classified elsewhere; R79.82 Elevated C-reactive protein (CRP); R94.31 Abnormal electrocardiogram [ECG] [EKG]; R60.0 Localized edema; R07.89 Other chest pain; R06.02 Shortness of breath; J13 Pneumonia due to Streptococcus pneumoniae; E87.6 Hypokalemia; J90 Pleural effusion, not elsewhere classified; R07.81 Pleurodynia; B20 Human immunodeficiency virus [HIV] disease; K76.0 Fatty (change of) liver, not elsewhere classified